=== PATIENT | female | born 1955 | race Two or more races ===

== ENCOUNTER 2020-04-01 11:05 | Outpatient (REF) | payer MEDICARE, SELFPAY ==
--- NOTE | 2020-04-01 | MM_ITS ---
EXAMINATION: MM SCREENING DIGITAL BREAST TOMOSYNTHESIS, BILATERAL CLINICAL INFORMATION: Screening. Asymptomatic. Family history breast cancer, cousin. The lifetime risk of breast cancer based on the Tyrer-Cuzick Model is 9%. COMPARISON: Mammography: 05/29/2019, 11/27/2018, 05/22/2018, 11/21/2017, 11/09/2017 TECHNIQUE: Digital breast tomosynthesis is performed in both the craniocaudal and mediolateral oblique views along with computer-aided detection (CAD). Synthesized 2D images are generated from the tomosynthesis. FINDINGS: The breasts are heterogeneously dense, which may obscure small masses (ACR BI-RADS breast composition Category c). There are no significant masses, abnormal calcifications, or other abnormalities. There is no architectural abnormality. No developing density. There are scattered bilateral vascular and some benign coarse calcifications again seen. No significant changes. IMPRESSION: No mammographic evidence of malignancy. ASSESSMENT: BI-RADS 2: Benign RECOMMENDATION: Routine annual mammography screening. This patient's information was entered into a reminder system with a target due date for their next mammogram.
== END 2020-04-01 11:06 | disposition home or self-care (01) ==
LOC: HO.MAMMO 11:05
PROVIDERS: PCP Internal Medicine; Visit Provider Physician Assistant
DX: Z12.31 Encounter for screening mammogram for malignant neoplasm of breast (principal)
CPT/HCPCS: 77063; 77067

== ENCOUNTER 2020-04-08 10:18 | Outpatient (REF) | payer MEDICARE, SELFPAY ==
[2020-04-08 11:45] LABS: MANUAL DIFF FLAG NO
[2020-04-08 11:53] LABS: Basophils Percent Auto 0.4 % (0-2); Eosinophils Absolute Auto 0.1 X10*3/uL (0.0-0.4); Eosinophils Percent Auto 0.7 % (0-4); Hemoglobin 12.1 g/dl (12.0-16.0); Imm Gran Abs Auto 0.02 X10*3/uL (0.00-0.03); Imm Gran Pct Auto 0.2 % (0.0-0.4); Lymphocytes Absolute Auto 1.3 X10*3/uL (1.2-4.9); Lymphocytes Percent Auto 16.3 % (20-40); Mean Corpuscular HGB Conc 32.7 g/dl (31.0-35.0); Mean Corpuscular Hemoglobin 30.4 pg (27.0-33.0); Monocytes Absolute Auto 0.9 X10*3/uL (0.1-1.2); Monocytes Percent Auto 10.7 % (2-11); Neutrophils Absolute Auto 5.8 X10*3/uL (2.0-8.3); Neutrophils Percent Auto 71.7 % (45-73); Platelet Count 358 X10*3/uL (160-400); Red Blood Count 3.98 X10*6/uL (4.20-5.50); Red Cell Distribution Width 11.9 % (11.0-16.0); White Blood Count 8.1 X10*3/uL (4.8-10.8)
[2020-04-08 12:22] LABS: Alanine Aminotransferase 15 U/L (0-31); Albumin Level 4.2 g/dL (3.5-5.0); Alkaline Phosphatase 51 U/L (39-117); Anion Gap 14 (12-20); Aspartate Amino Transferase 21 U/L (5-31); Bilirubin Total 0.7 mg/dL (0.0-1.0); Blood Urea Nitrogen 12 mg/dL (9-16); Calcium 9.6 mg/dL (8.4-10.2); Carbon Dioxide 33 mmol/L (22-29); Chloride 97 mmol/L (96-108); Cholesterol 223 mg/dL; Estimated Glomerular Filt Rate > 60; Glucose Fasting 100 mg/dL (60-99); HDL Cholesterol 77 mg/dL; LDL Cholesterol Calculated 119 mg/dl; Sodium 140 mmol/L (135-145); Total Protein 7.7 g/dL (6.5-8.0); Triglycerides 137 mg/dL
[2020-04-08 12:44] LABS: Vitamin D 25-OH Total 31.6 ng/mL (>30)
[2020-04-08 13:34] LABS: Folate 15.3 ng/mL (> or = 4.0); Vitamin B12 580 pg/mL (200-900)
== END 2020-04-08 10:19 | disposition home or self-care (01) ==
LOC: HO.LAB 10:18
PROVIDERS: PCP Internal Medicine; Visit Provider Internal Medicine
DX: E78.00 Pure hypercholesterolemia, unspecified (principal); I10 Essential (primary) hypertension; E53.8 Deficiency of other specified B group vitamins; E55.9 Vitamin D deficiency, unspecified
CPT/HCPCS: 36415; 80053; 80061; 82306; 82607; 82746; 85025

== ENCOUNTER 2020-07-21 09:51 | Outpatient (REF) | payer MEDICARE, SELFPAY ==
[2020-07-21 10:48] LABS: Alanine Aminotransferase 12 U/L (0-31); Albumin Level 4.3 g/dL (3.5-5.0); Alkaline Phosphatase 45 U/L (39-117); Anion Gap 14 (12-20); Aspartate Amino Transferase 21 U/L (5-31); Bilirubin Total 0.5 mg/dL (0.0-1.0); Blood Urea Nitrogen 15 mg/dL (9-16); Calcium 9.1 mg/dL (8.4-10.2); Carbon Dioxide 31 mmol/L (22-29); Chloride 98 mmol/L (96-108); Cholesterol 207 mg/dL; Estimated Glomerular Filt Rate > 60; Glucose Fasting 102 mg/dL (60-99); HDL Cholesterol 76 mg/dL; LDL Cholesterol Calculated 104 mg/dl; Potassium 3.5 mmol/L (3.3-5.1); Sodium 139 mmol/L (135-145); Total Protein 7.7 g/dL (6.5-8.0); Triglycerides 135 mg/dL
[2020-07-25 21:52] LABS: Vitamin D 25-OH, D2 <4 ng/mL; Vitamin D 25-OH, D3 33 ng/mL; Vitamin D 25-OH, Total 33 ng/mL (30-100)
== END 2020-07-21 09:52 | disposition home or self-care (01) ==
LOC: HO.LAB 09:51
PROVIDERS: PCP Internal Medicine; Visit Provider Internal Medicine
DX: E78.00 Pure hypercholesterolemia, unspecified (principal); E55.9 Vitamin D deficiency, unspecified
CPT/HCPCS: 36415; 80053; 80061; 82306

== ENCOUNTER 2020-11-18 13:18 | Emergency (ER) | payer MEDICARE, SELFPAY ==
--- NOTE | ~2020-11-18 | XR_ITS ---
EXAMINATION: RIGHT SHOULDER. LEFT HUMERUS. CLINICAL INFORMATION: Right shoulder pain. Left humeral pain. COMPARISON: None TECHNIQUE: 3 views right shoulder and 2 views left humerus. FINDINGS: Right shoulder: There is no visible acute fracture, dislocation or subluxation seen. There is mild reduction of glenohumeral and AC joint space. There is mild acromial inferior spurring. The soft tissues are normal. XR/XR shoulder RT min 2V IMPRESSION: Mild early degenerative changes right shoulder joint. No visible acute fracture, dislocation or subluxation seen.
--- NOTE | ~2020-11-18 | XR_ITS ---
EXAMINATION: RIGHT SHOULDER. LEFT HUMERUS. CLINICAL INFORMATION: Right shoulder pain. Left humeral pain. COMPARISON: None TECHNIQUE: 3 views right shoulder and 2 views left humerus. FINDINGS: Right shoulder: There is no visible acute fracture, dislocation or subluxation seen. There is mild reduction of glenohumeral and AC joint space. There is mild acromial inferior spurring. The soft tissues are normal. XR/XR humerus LT IMPRESSION: Mild early degenerative changes right shoulder joint. No visible acute fracture, dislocation or subluxation seen.
[2020-11-18 14:02] VITALS: BP 151/81; PULSE 71; RESP 16; TEMP 36.9; O2SAT 100; BMI 19.1
--- NOTE | 2020-11-18 15:45 | ED.EXTPRO ---
HPI - Extremity Problem General Chief complaint: Extremity Injury, Upper Stated complaint: ARM PAIN AND TINGLING Time Seen by Provider: 11/18/20 14:41 History of Present Illness HPI Narrative: Patient complains of pain without injury in both right shoulder and left bicep area, no fever no numbness no weakness no tingling no skin Related Data Home Medications Medication Instructions Recorded Confirmed atorvastatin 10 mg tablet 20 mg PO DAILY tab 04/13/20 08/18/20 melatonin 5 mg tablet 5 mg PO BEDTIME PRN 04/13/20 08/18/20 Previous Rx's Medication Instructions Recorded cholecalciferol (vitamin D3) 10 10 mcg PO DAILY 90 Days #90 cap 03/30/20 mcg (400 unit) capsule omeprazole 10 mg capsule,delayed 10 mg PO DAILY 90 Days #90 cap 05/18/20 release triamterene 37.5 1 tab PO QAM #90 tab 06/09/20 mg-hydrochlorothiazide 25 mg tablet fluticasone propionate 50 1 spray INTRANASAL DAILY 30 Days 08/18/20 mcg/actuation nasal #16 g spray,suspension trazodone 50 mg tablet 50 mg PO BEDTIME PRN 30 Days #30 08/27/20 tab acetaminophen 1,000 mg PO QID PRN #30 tab 11/18/20 lidocaine 5 % topical ointment 1 appl TOPICAL BEDTIME PRN 30 Days 11/18/20 #30 g naproxen [Naprosyn] 500 mg PO BID PRN #20 tab 11/18/20 Allergies Allergy/AdvReac Type Severity Reaction Status Date / Time pravastatin [PRAVASTATIN] Allergy Intermediate UPSET Verified 11/18/20 14:07 STOMACH simvastatin [SIMVASTATIN] Allergy Intermediate UPSET Verified 11/18/20 14:07 STOMACH ciprofloxacin Allergy Unknown Unknown Verified 11/18/20 14:07 lovastatin Allergy Unknown upset Verified 11/18/20 14:07 stomach Review of Systems Review of Systems: Positive for right shoulder pain and left upper arm pain Negatives are no fever no chills no dizziness no weakness no fainting no headache no neck pain no radiating pain no numbness weakness or tingling no skin rash no back pain Yes all other systems are reviewed and are negative PMFSH Past Medical History Source: nursing notes reviewed Medical History (Updated 12/07/20 @ 11:27 by Sharon K Dana, PA-C) Allergic rhinitis Essential hypertension GERD (gastroesophageal reflux disease) Pure hypercholesterolemia Unintentional weight loss Surgical History H/O breast biopsy History of cholecystectomy History of colonoscopy History of endoscopy History of tubal ligation Family History Family History Father No problems noted. Mother Hypertension Arthritis Kidney disease Recent heart attack Sister Diabetes Family/Other Diabetes Sister Diabetes Daughter No problems noted. Son No problems noted. Physical Exam Vital Signs: Vital Signs: Last Vital Signs Temp 98.5 F 11/18/20 14:02 Pulse 71 11/18/20 14:02 Resp 16 11/18/20 14:02 BP 151/81 H 11/18/20 14:02 Pulse Ox 100 11/18/20 14:02 Body Mass Index 19.1 General appearance no acute distress Head is normocephalic atraumatic Neck is supple and nontender Respiratory no distress Extremities the right shoulder had some anterior and lateral tenderness, range of motion was mildly reduced due to pain The left upper arm is normal in appearance there is some tenderness is no redness no warmth it is neurovascular intact distal as is the right shoulder The other extremities normal Skin no rash Neuro no gross motor sensory deficit Course Course Course Narrative: X-rays of right shoulder and left upper arm are normal No evidence of any infection and patient is discharged to follow with orthopedist Discharge Plan Discharge Clinical Impression: Biceps tendinitis of left upper extremity, Arthralgia of shoulder region, right Patient Disposition: Home, Self-Care Additional Instructions: X-ray showed some arthritis and right shoulder and were normal in left upper arm Follow with orthopedist Return any time if worse Prescriptions: New naproxen [Naprosyn] 500 mg tablet 500 mg PO BID PRN (Reason: pain) Qty: 20 RF: 0 acetaminophen 500 mg tablet 1,000 mg PO QID PRN (Reason: pain) Qty: 30 RF: 0 No Action cholecalciferol (vitamin D3) 10 mcg (400 unit) capsule 10 mcg PO DAILY 90 Days Qty: 90 RF: 2 omeprazole 10 mg capsule,delayed release(DR/EC) 10 mg PO DAILY 90 Days Qty: 90 RF: 3 triamterene-hydrochlorothiazid 37.5-25 mg tablet 1 tab PO QAM Qty: 90 RF: 3 trazodone 50 mg tablet 50 mg PO BEDTIME PRN (Reason: insomnia) 30 Days Qty: 30 RF: 6 lidocaine 5 % ointment 1 appl topical BEDTIME PRN (Reason: pain) 30 Days Qty: 30 RF: 1 melatonin 5 mg tablet 5 mg PO BEDTIME PRNRF: 0 atorvastatin 10 mg tablet 20 mg PO DAILY RF: 0 fluticasone propionate 50 mcg/actuation spray,suspension 1 spray intranasal DAILY 30 Days Qty: 16 RF: 6 Referrals: Liss Jimenez MD [Physician] - 2 days (Shoulder arthritis and biceps tendinitis) Interventions: ED Discharge Assessment Last Done: 11/18/20 16:00 Discharge Date/Time: 11/18/20 15:50
== END 2020-11-18 15:50 | disposition home or self-care (01) ==
PROVIDERS: Emergency Provider Emergency Medicine; PCP Internal Medicine
DX: M75.22 Bicipital tendinitis, left shoulder (principal); M19.011 Primary osteoarthritis, right shoulder; M25.511 Pain in right shoulder; E78.00 Pure hypercholesterolemia, unspecified; I10 Essential (primary) hypertension; Z79.02 Long term (current) use of antithrombotics/antiplatelets; Z79.899 Other long term (current) drug therapy
CPT/HCPCS: 73030; 73060; 99283

== ENCOUNTER → 2020-12-07 10:38 | Outpatient (BNVA) | payer MEDICARE, SELFPAY | PROVIDERS: PCP Internal Medicine; Visit Provider Physician Assistant | DX: M75.41 Impingement syndrome of right shoulder (principal) | CPT/HCPCS: 99202 ==

== ENCOUNTER 2020-12-29 08:10 | Outpatient (REF) | payer MEDICARE, SELFPAY ==
--- NOTE | ~2020-12-29 | XR_ITS ---
EXAMINATION: XR ELBOW, LEFT CLINICAL INFORMATION: Left elbow pain. COMPARISON: None TECHNIQUE: AP, lateral, and oblique views of the left elbow. FINDINGS: No acute fracture or dislocation. No joint space narrowing or marginal osteophytes. No osseous erosion. No abnormal soft tissue calcification. No significant joint effusion. XR/XR elbow LT min 3V IMPRESSION: No acute osseous abnormality.
== END 2020-12-29 08:11 | disposition home or self-care (01) ==
LOC: HO.HOSX 08:10
PROVIDERS: Visit Provider Physician Assistant
DX: M25.522 Pain in left elbow (principal)
CPT/HCPCS: 73080; 99212

== ENCOUNTER 2021-02-03 10:47 | Outpatient (REF) | payer MEDICARE, SELFPAY ==
[2021-02-03 13:17] LABS: Alanine Aminotransferase 20 U/L (0-31); Albumin Level 4.3 g/dL (3.5-5.0); Alkaline Phosphatase 45 U/L (39-117); Anion Gap 15 (12-20); Aspartate Amino Transferase 22 U/L (5-31); Bilirubin Total 0.6 mg/dL (0.0-1.0); Blood Urea Nitrogen 10 mg/dL (9-16); Calcium 9.5 mg/dL (8.4-10.2); Carbon Dioxide 30 mmol/L (22-29); Chloride 98 mmol/L (96-108); Cholesterol 220 mg/dL; Estimated Glomerular Filt Rate > 60; Glucose Fasting 94 mg/dL (60-99); HDL Cholesterol 81 mg/dL; LDL Cholesterol Calculated 120 mg/dl; Potassium 3.7 mmol/L (3.3-5.1); Sodium 139 mmol/L (135-145); Total Protein 7.7 g/dL (6.5-8.0); Triglycerides 98 mg/dL
[2021-02-08 13:25] LABS: Vitamin D 25-OH, D2 <4 ng/mL; Vitamin D 25-OH, D3 33 ng/mL; Vitamin D 25-OH, Total 33 ng/mL (30-100)
== END 2021-02-03 10:48 | disposition home or self-care (01) ==
LOC: HO.LAB 10:47
PROVIDERS: PCP Internal Medicine; Visit Provider Internal Medicine
DX: E55.9 Vitamin D deficiency, unspecified (principal); E78.00 Pure hypercholesterolemia, unspecified; E78.5 Hyperlipidemia, unspecified
CPT/HCPCS: 36415; 80053; 80061; 82306

== ENCOUNTER 2021-03-08 10:46 | Outpatient (REF) | payer MEDICARE, SELFPAY ==
[2021-03-08 12:45] LABS: Appearance Urine CLEAR; Color Urine YELLOW; Glucose Urine UA NEG (NEG); Leukocyte Esterase Urine 2+ (NEG); Nitrite Urine NEG (NEG); PH 7.5 (5.0-8.0); Specific Gravity - Urine 1.015 (1.005-1.025); UACC Culture Trigger YES; Urine Blood 2+ (NEG); Urine Ketones NEG (NEG); Urine Protein NEG (NEG-TRACE)
[2021-03-08 14:16] LABS: Bacteria Urine TRACE /LPF; Squamous Epithelial Cell Urine TRACE /LPF
== END 2021-03-08 10:47 | disposition home or self-care (01) ==
LOC: HO.LAB 10:46
PROVIDERS: PCP Internal Medicine; Visit Provider Internal Medicine
DX: R31.9 Hematuria, unspecified (principal)
CPT/HCPCS: 81001; 81003; 87086

== ENCOUNTER 2021-04-05 09:30 | Outpatient (REF) | payer MEDICARE, SELFPAY ==
--- NOTE | ~2021-04-05 | MM_ITS ---
EXAMINATION: MM SCREENING DIGITAL BREAST TOMOSYNTHESIS, BILATERAL CLINICAL INFORMATION: Screening. Asymptomatic. The lifetime risk of breast cancer based on the Tyrer-Cuzick Model is 3%. COMPARISON: Mammography: 04/01/2020, 05/29/2019, 11/27/2018, 05/22/2018, 11/21/2017, 11/09/2017, 01/29/2016 TECHNIQUE: Digital breast tomosynthesis is performed in both the craniocaudal and mediolateral oblique views along with computer-aided detection (CAD). Synthesized 2D images are generated from the tomosynthesis. FINDINGS: The breasts are heterogeneously dense, which may obscure small masses (ACR BI-RADS breast composition Category c). There is no significant mass or architectural abnormality. No abnormal calcifications. Again, there are bilateral vascular calcifications and some grouped coarse calcific posterior outer right breast and upper left breast. There is no developing density. The axilla and skin contours are unremarkable. MM/MM tomosynthesis screening BI IMPRESSION: No mammographic evidence of malignancy. ASSESSMENT: BI-RADS 2: Benign RECOMMENDATION: Routine annual mammography screening. This patient's information was entered into a reminder system with a target due date for their next mammogram.
== END 2021-04-05 09:31 | disposition home or self-care (01) ==
LOC: HO.MAMMO 09:30
PROVIDERS: PCP Internal Medicine; Visit Provider Physician Assistant
DX: Z12.31 Encounter for screening mammogram for malignant neoplasm of breast (principal)
CPT/HCPCS: 77063; 77067

== ENCOUNTER 2021-05-19 09:53 | Outpatient (REF) | payer MEDICARE, SELFPAY ==
--- NOTE | 2021-05-19 09:55 | EMG_ITS ---
This is a 66-year-old woman with left hand pain, numbness, and tingling. PHYSICAL EXAMINATION: On examination, she is alert and oriented with normal intellectual functions. Cranial nerves II through XII are normal. No Tinel or Phalen sign. Rule out carpal tunnel syndrome. Nerve conduction EMG study: Normal electrodiagnostic study of the left upper extremity with no evidence of carpal tunnel syndrome or nerve entrapment. Normal EMG of the left C5-T1 innervated muscles. MD MONICA Lemons/ALEXANDRA / [id number]
== END 2021-05-19 09:54 | disposition home or self-care (01) ==
LOC: HO.NEURO 09:53
PROVIDERS: Visit Provider Physician Assistant
DX: M79.642 Pain in left hand (principal); R20.0 Anesthesia of skin; M25.529 Pain in unspecified elbow
CPT/HCPCS: 95885; 95910

== ENCOUNTER 2022-01-13 09:24 | Outpatient (REF) | payer MEDICARE, SELFPAY ==
[2022-01-13 10:28] LABS: Alanine Aminotransferase 29 U/L (0-31); Albumin Level 4.2 g/dL (3.5-5.0); Alkaline Phosphatase 45 U/L (39-117); Anion Gap 13 (12-20); Aspartate Amino Transferase 27 U/L (5-31); Bilirubin Total 0.4 mg/dL (0.0-1.0); Blood Urea Nitrogen 12 mg/dL (9-16); Calcium 9.2 mg/dL (8.4-10.2); Carbon Dioxide 30 mmol/L (22-29); Chloride 98 mmol/L (96-108); Cholesterol 200 mg/dL; Estimated Glomerular Filt Rate > 60; Glucose Fasting 92 mg/dL (60-99); HDL Cholesterol 76 mg/dL; LDL Cholesterol Calculated 98 mg/dl; Potassium 3.8 mmol/L (3.3-5.1); Sodium 137 mmol/L (135-145); Total Protein 7.5 g/dL (6.5-8.0); Triglycerides 130 mg/dL
[2022-01-13 13:15] LABS: Appearance Urine CLEAR; Color Urine YELLOW; Glucose Urine UA NEG (NEG); Nitrite Urine NEG (NEG); PH 7.5 (5.0-8.0); Urine Blood 1+ (NEG); Urine Ketones NEG (NEG); Urine Protein NEG (NEG-TRACE)
[2022-01-13 13:16] LABS: Leukocyte Esterase Urine TRACE (NEG); UACC Culture Trigger NO
[2022-01-13 13:36] LABS: WBC Urine 0 /HPF (0-4)
[2022-01-18 15:56] LABS: Vitamin D 25-OH, D2 <4 ng/mL; Vitamin D 25-OH, D3 32 ng/mL; Vitamin D 25-OH, Total 32 ng/mL (30-100)
== END 2022-01-13 09:25 | disposition home or self-care (01) ==
LOC: HO.LAB 09:24
PROVIDERS: PCP Internal Medicine; Visit Provider Internal Medicine
DX: E55.9 Vitamin D deficiency, unspecified (principal); E78.5 Hyperlipidemia, unspecified; I10 Essential (primary) hypertension
CPT/HCPCS: 36415; 80053; 80061; 81001; 81003; 82306

== ENCOUNTER 2022-04-21 09:38 | Outpatient (REF) | payer MEDICARE, SELFPAY ==
--- NOTE | ~2022-04-21 | MM_ITS ---
EXAMINATION: MM SCREENING DIGITAL BREAST TOMOSYNTHESIS, BILATERAL CLINICAL INFORMATION: Screening. Asymptomatic. COMPARISON: Mammography: 04/05/2021, 04/01/2020, 05/29/2019 TECHNIQUE: Digital breast tomosynthesis is performed in both the craniocaudal and mediolateral oblique views along with computer-aided detection (CAD). Synthesized 2D images are generated from the tomosynthesis. FINDINGS: The breasts are heterogeneously dense, which may obscure small masses (ACR BI-RADS breast composition Category c). Breast tissue composition borders on average fibroglandular. There are no significant masses, abnormal calcifications, or other abnormalities. Parenchymal pattern is similar to prior studies. The axilla and skin contours are unremarkable. MM/MM tomosynthesis screening BI IMPRESSION: No mammographic evidence of malignancy. ASSESSMENT: BI-RADS 1: Negative RECOMMENDATION: Routine annual mammography screening. This patient's information was entered into a reminder system with a target due date for their next mammogram.
== END 2022-04-21 09:39 | disposition home or self-care (01) ==
LOC: HO.MAMMO 09:38
PROVIDERS: PCP Internal Medicine; Visit Provider Physician Assistant
DX: Z12.31 Encounter for screening mammogram for malignant neoplasm of breast (principal)
CPT/HCPCS: 77063; 77067

== ENCOUNTER 2022-05-26 09:07 | Outpatient (REF) | payer MEDICARE, SELFPAY ==
[2022-05-26 12:10] LABS: Alanine Aminotransferase 39 U/L (0-31); Albumin Level 4.4 g/dL (3.5-5.0); Alkaline Phosphatase 45 U/L (39-117); Anion Gap 13 (12-20); Aspartate Amino Transferase 34 U/L (5-31); Bilirubin Total 0.5 mg/dL (0.0-1.0); Blood Urea Nitrogen 16 mg/dL (9-16); Calcium 9.4 mg/dL (8.4-10.2); Carbon Dioxide 32 mmol/L (22-29); Chloride 99 mmol/L (96-108); Cholesterol 219 mg/dL; Estimated Glomerular Filt Rate > 60; Glucose Fasting 94 mg/dL (60-99); HDL Cholesterol 77 mg/dL; LDL Cholesterol Calculated 120 mg/dl; Potassium 3.8 mmol/L (3.3-5.1); Sodium 140 mmol/L (135-145); Total Protein 7.5 g/dL (6.5-8.0); Triglycerides 110 mg/dL; Vitamin D 25-OH Total 35.1 ng/mL (>30)
== END 2022-05-26 09:08 | disposition home or self-care (01) ==
LOC: HO.LAB 09:07
PROVIDERS: PCP Internal Medicine; Visit Provider Internal Medicine
DX: Z00.00 Encounter for general adult medical examination without abnormal findings (principal); E55.9 Vitamin D deficiency, unspecified; E78.5 Hyperlipidemia, unspecified
CPT/HCPCS: 36415; 80053; 80061; 82306

== ENCOUNTER 2023-01-26 09:53 | Outpatient (AMB) | payer MEDICARE, SELFPAY ==
--- NOTE | 2023-01-26 09:59 | A.OFFPC_ITS ---
Vital Signs 01/26/23 10:02 Height 4 ft 11.25 in Weight 102 lb 4 oz BMI 20.5 BP 124/72 Blood Pressure Location Lt brachial Position Sitting Pulse 65 Pulse Source Pulse Oximeter Pulse Oximetry (%) 98 Oxygen Delivery Method Room Air Intake Visit Reasons: PE, Bill ACP Intake Note: Patient is here today for a physical. Stop Attacher Required: No Accompanied by: Self / Same As Patient Allergies ciprofloxacin Allergy (Unknown, Verified 01/26/23 10:13) Unknown lovastatin Adverse Reaction (Intermediate, Verified 01/26/23 10:13) upset stomach pravastatin [PRAVASTATIN] Adverse Reaction (Intermediate, Verified 01/26/23 10:13) UPSET STOMACH simvastatin [SIMVASTATIN] Adverse Reaction (Intermediate, Verified 01/26/23 10:13) UPSET STOMACH Medication List - Last Reconciled 01/26/23 by Yari Cuello MD atorvastatin 10 mg PO DAILY 90 days cholecalciferol (vitamin D3) 10 mcg PO DAILY 90 days fluticasone propionate 50 mcg/actuation (Allergy Relief (fluticasone)) 1 spray intranasal DAILY 30 days lidocaine 5% 1 appl topical BEDTIME PRN 30 days melatonin 5 mg PO BEDTIME PRN omeprazole 10 mg PO DAILY 90 days triamterene-hydrochlorothiazid 37.5-25 mg 1 tab PO QAM Tobacco use date assessed: 01/26/23 Fall risk assessment: No Falls in past year Last assessed Fall Risk: 01/26/23 Dental Screening Dental Screen Date: 01/26/23 Did you have a dental visit in the last 12 months?: Yes Did you have a dental problem in the last 6 months where you did not have access to dental care?: No Was dental information given to patient?: Patient has dentist HPI HPI Comments History of Present Illness Details This is a 67-year-old female that comes for her physical exam. She has history of mild major depression that is in remission. Also had ankle-brachial index done recently which showed mild peripheral arterial disease in the right. She complains of some very mild pain in leg after walking a very long distance. Ultrasound will be done. Last mammogram was April 2022 and was normal. Last colonoscopy was 2018 and next colonoscopy should be 2023. No need for Pap smear due to age. No chest pain or shortness of breath. [facility] Medical History (Updated 01/26/23 @ 10:34 by Yari Cuello MD) Allergic rhinitis Essential hypertension GERD (gastroesophageal reflux disease) Mild major depression, single episode Pure hypercholesterolemia Unintentional weight loss Surgical History (Updated 01/26/23 @ 10:18 by Yari Cuello MD) H/O breast biopsy History of colonoscopy History of endoscopy History of tubal ligation Family History Father No problems noted. Mother Hypertension Arthritis Kidney disease Recent heart attack Sister Diabetes Family/Other Diabetes Sister Diabetes Daughter No problems noted. Son No problems noted. 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 1. Little interest or pleasure in doing things: not at all 2. Feeling down, depressed, or hopeless: not at all 3. Trouble falling or staying asleep, or sleeping too much: not at all 4. Feeling tired or having little energy: not at all 5. Poor appetite or overeating: not at all 6. Feeling bad about yourself - or that you are a failure or have let yourself or your family down: not at all 7. Trouble concentrating on things, such as reading the newspaper or watching television: not at all 8. Moving or speaking so slowly that other people could have noticed. Or the opp osite - being so fidgety or restless that you have been moving around a lot more than usual: not at all 9. Thoughts that you would be better off or of hurting yourself in some way: not at all Total score: 0 Depression Screening Interpretation: Negative 18238 - PHQ-9 Billing: Yes Source: Developed by Drs. Ken Baum, Katja Martinez, Jesus Landeros and colleagues, with an educational doug from [employer]. Thrive Questionnaire Date Thrive assessed: 01/26/23 I am a: Patient What is your living situation today?: I have a steady place to live Within the past 12 months, did the food you bought not last and you didn't have the money to get more?: Never true Within the past 12 months, did you worry whether your food would run out before you got money to buy more?: Never true Do you have trouble paying for medicines?: No Do you have trouble getting transportation to medical appointments?: No Do you have trouble paying your heating and electricity bill?: No Do you have trouble taking care of your child, family member or friend?: No Do you have trouble with day-to-day activities such as bathing, preparing meals, shopping, managing finances, etc.?: No Are you currently unemployed and looking for a job?: No Are you interested in more education?: No Please select the resources that you would like help with: None Currently or been in a relationship where the following occur: no concerns reported AUDIT C Alcohol Use Questionnaire (AUDIT-C) 1. How often do you have a drink containing alcohol?: Never 3. How often do you have six or more drinks on one occasion?: Never Total Score: 0 KANDICE-7 AMB Questionnaire KANDICE-7 Date KANDICE - 7 assessed: 01/26/23 Feeling nervous, anxious, or on edge: 0 = Not at all Not being able to stop or control worryin = Not at all Worrying too much about different things: 0 = Not at all Trouble relaxin = Not at all Being so restless that it is hard to sit still: 0 = Not at all Becoming easily annoyed or irritable: 0 = Not at all Feeling afraid as if something awful might happen: 0 = Not at all Total KANDICE-7 score (0-4 normal; 5-9 mild; 10-14 moderate; 15-21 severe): 0 Source: Developed by Drs. Ken Baum, Katja Martinez, Jesus Landeros and colleagues, with an educational doug from [employer]. KANDICE-7 Assessment Billing KANDICE-7 Assessment Tool: KANDICE-7 Assessment 00371 Review of Systems Const All systems reviewed & are unremarkable except as noted in HPI and below Eyes Reports no additional complaints, Denies change in vision and Denies other visual disturbances Card Denies chest pain at rest, Denies chest pain with activity, Denies edema, Denies irregular heart rhythm, Denies claudication, Denies dyspnea, Denies dyspnea on exertion, Denies orthopnea, Denies paroxysmal nocturnal dyspnea and Denies slow heart rate Resp Denies cough, Denies dyspnea and Denies dyspnea on exertion GI Denies abdominal pain, Denies change in bowel habits, Denies excessive flatus, Denies nausea and Denies vomiting Denies urinary incontinence, Denies urinary hesitancy and Denies urinary urgency Musc Denies abnormal gait, Denies atrophy, Denies deformity and Denies limited range of motion Skin/Breast Denies bleeding lesions, Denies changing lesions and Denies rash Neuro Denies abnormal gait, Denies behavioral changes, Denies confusion and Denies lack of coordination Psych Denies behavioral changes and Denies confusion Physical exam (Primary Care) Vital Signs: Last Vital Signs Pulse 65 01/26/23 10:02 BP 124/72 01/26/23 10:02 Pulse Ox 98 01/26/23 10:02 Oxygen Delivery Method Room Air 01/26/23 10:02 BMI result Body Mass Index 20.5 Tobacco/Smoking Status: Tobacco use Status Tobacco use date assessed 01/26/23 01/26/23 10:06 Patient Tobacco Use Status Never used Tobacco 01/26/23 09:59 e-Cigarette/Vaping Use Never Used 01/26/23 09:59 PHQ-9: PHQ-9 Score PHQ-9: Total score 0 01/26/23 10:06 Depression Screening Interpretation: Negative Thrive Assessment: Date of Thrive Assessment Date Thrive assessed 01/26/23 01/26/23 10:06 Currently or been in a relationship where the following occur: no concerns reported Const General: No confusion Orientation/consciousness: patient oriented x3 and No confusion HENMT Head: Yes normal to inspection, Yes normocephalic and Yes atraumatic Ears: external ears normal Eyes General: appearance normal, both eyes and all related structures Eyelids: Yes eyelids normal Conjunctivae: conjunctivae normal Neck Neck: Yes normal visual inspection and Yes supple Resp Effort & Inspection: normal respiratory effort Auscultation: clear to auscultation bilaterally Cardio Jugular venous distension: no JVD Rate: regular rate Rhythm: regular rhythm Heart sounds: S1 normal heart sound present and S2 normal heart sound present GI Inspection: Yes normal to inspection Palpation (GI): Soft to palpation and nontender Auscultation: normal bowel sounds Skin General skin exam: no rashes or lesions noted Neuro General: patient oriented x3, no focal motor deficits and No confusion Extrem General: Yes full ROM Psych Appearance: grossly normal Assessment and Plan Assessment & Plan (1) Physical exam: Code(s): Z00.00 - Encounter for general adult medical examination without abnormal findings Plan: Repeat in a year (2) Peripheral arterial disease: Comment: CANDIDO right 0.86 CANDIDO left 0.94 Code(s): I73.9 - Peripheral vascular disease, unspecified Plan: Ultrasound ordered (3) Mild major depression, single episode: Code(s): F32.0 - Major depressive disorder, single episode, mild Plan: In remission Orders: Orders US arterial duplex LE BI Today I73.9 - Peripheral vascular disease, unspecified Coding Level of Care Code Est Pt Prev Care >65y(38951) Diagnoses Physical exam Z00.00 Peripheral arterial disease I73.9 Mild major depression, single episode F32.0 Additional Codes KANDICE-7 Assessment Billing - KANDICE-7 Assessment Tool: KANDICE-7 Assessment [id number] ([id number]) Time Spent (min) 32
[2023-01-26 10:02] VITALS: BP 124/72; PULSE 65; O2SAT 98; BMI 20.5
== END 2023-01-26 10:29 | disposition home or self-care (01) ==
LOC: HO.HMGH 09:53
PROVIDERS: PCP Internal Medicine; Visit Provider Internal Medicine
DX: Z00.00 Encounter for general adult medical examination without abnormal findings (principal); I73.9 Peripheral vascular disease, unspecified; F32.0 Major depressive disorder, single episode, mild
CPT/HCPCS: 99397

== ENCOUNTER 2023-02-02 14:19 | Outpatient (REF) | payer MEDICARE, SELFPAY ==
--- NOTE | ~2023-02-02 | US_ITS ---
CLINICAL INDICATION: Peripheral vascular disease. FINDINGS: Real-time duplex on the examination of the lower extremity arterial systems was performed bilaterally from the levels of the external iliac arteries to the ankles. Right lower extremity peak systolic velocities (cm/s): Common femoral artery: 83 Profunda femoral artery: 65 Proximal superficial femoral artery: 97 Mid superficial femoral artery: 92 Distal superficial femoral artery: 61 Proximal popliteal artery: 57 Distal popliteal artery: 72 Mid anterior tibial artery: 56 Peroneal artery: 52 Posterior tibial artery: 52 Dorsalis pedis artery: 49 Grayscale and color Doppler imaging of the right lower extremity demonstrates triphasic waveforms throughout. Left lower extremity peak systolic velocities (cm/s): Common femoral artery: 88 Profunda femoral artery: 74 Proximal superficial femoral artery: 96 Mid superficial femoral artery: 96 Distal superficial femoral artery: 65 Proximal popliteal artery: 52 Distal popliteal artery: 70 Mid anterior tibial artery: 56 Peroneal artery: 46 Posterior tibial artery: 48 Dorsalis pedis artery: 61 Grayscale and color Doppler imaging of the left lower extremity demonstrates triphasic waveforms throughout. US/US arterial duplex LE BI IMPRESSION: No evidence of hemodynamically significant stenosis.
== END 2023-02-02 14:20 | disposition home or self-care (01) ==
LOC: HO.US 14:19
PROVIDERS: Visit Provider Internal Medicine
DX: I73.9 Peripheral vascular disease, unspecified (principal)
CPT/HCPCS: 93925

== ENCOUNTER 2023-04-27 09:05 | Outpatient (REF) | payer OTHER, SELFPAY | END 2023-04-27 09:06 | disposition home or self-care (01) | LOC: HO.MAMMO 09:05 | PROVIDERS: PCP Internal Medicine; Visit Provider Internal Medicine | DX: Z12.31 Encounter for screening mammogram for malignant neoplasm of breast (principal) | CPT/HCPCS: 77063; 77067 ==

== ENCOUNTER → 2023-04-27 09:45 | Outpatient (BNV) | payer OTHER, SELFPAY | PROVIDERS: PCP Internal Medicine; Visit Provider Radiology Diagnostic Radiology | DX: Z12.31 Encounter for screening mammogram for malignant neoplasm of breast (principal) | CPT/HCPCS: 77063; 77067 ==

== ENCOUNTER 2023-07-31 09:21 | Outpatient (AMB) | payer OTHER, SELFPAY ==
[2023-07-31 09:25] VITALS: BP 132/78; BMI 21.0
--- NOTE | 2023-07-31 09:25 | A.OFFPC_ITS ---
Vital Signs 07/31/23 09:25 Height 4 ft 11.25 in Weight 105 lb BMI 21.0 BP 132/78 Blood Pressure Location Lt brachial Position Sitting Intake Visit Reasons: bp Intake Note: Patient here for a follow up BP Wire Temperer Required: No Accompanied by: Self / Same As Patient Allergies ciprofloxacin Allergy (Unknown, Verified 07/31/23 09:36) Unknown lovastatin Adverse Reaction (Intermediate, Verified 07/31/23 09:36) upset stomach pravastatin [PRAVASTATIN] Adverse Reaction (Intermediate, Verified 07/31/23 09:36) UPSET STOMACH simvastatin [SIMVASTATIN] Adverse Reaction (Intermediate, Verified 07/31/23 09:36) UPSET STOMACH Medication List - Last Reconciled 07/31/23 by Yari Cuello MD atorvastatin 10 mg PO DAILY 90 days cholecalciferol (vitamin D3) 10 mcg PO DAILY 90 days fluticasone propionate 50 mcg/actuation (Allergy Relief (fluticasone)) 1 spray intranasal DAILY 30 days omeprazole 10 mg PO DAILY 90 days triamterene-hydrochlorothiazid 37.5-25 mg 1 tab PO QAM Tobacco use date assessed: 07/31/23 Fall risk assessment: No Falls in past year Last assessed Fall Risk: 07/31/23 Dental Screening Dental Screen Date: 07/31/23 Did you have a dental visit in the last 12 months?: Yes Did you have a dental problem in the last 6 months where you did not have access to dental care?: No Was dental information given to patient?: Patient has dentist HPI HPI Comments History of Present Illness Details This is a 68-year-old female with mild major depression, hypertension, pure hypercholesterolemia and GERD that comes today for follow-up on her conditions. Depression has been in remission without requiring medication or counseling. Blood pressure stable. On low-dose statin for her cholesterol and lipid panel will be order this year. GERD stable with low-dose PPIs as needed. No chest pain or shortness of breath. [facility] Medical History Mild major depression, single episode Unintentional weight loss Allergic rhinitis GERD (gastroesophageal reflux disease) Pure hypercholesterolemia Essential hypertension Surgical History History of endoscopy History of colonoscopy H/O breast biopsy History of tubal ligation Family History Father No problems noted. Mother Hypertension Arthritis Kidney disease Recent heart attack Sister Diabetes Family/Other Diabetes Sister Diabetes Daughter No problems noted. Son No problems noted. 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 1. Little interest or pleasure in doing things: several days 2. Feeling down, depressed, or hopeless: several days 3. Trouble falling or staying asleep, or sleeping too much: not at all 4. Feeling tired or having little energy: several days 5. Poor appetite or overeating: several days 6. Feeling bad about yourself - or that you are a failure or have let yourself or your family down: not at all 7. Trouble concentrating on things, such as reading the newspaper or watching television: not at all 8. Moving or speaking so slowly that other people could have noticed. Or the opposite - being so fidgety or restless that you have been moving around a lot more than usual: several days 9. Thoughts that you would be better off or of hurting yourself in some way: not at all Total score: 5 Depression Screening Interpretation: Positive Depression Screening Follow-up: Existing condition Depression Screening Done: Yes 48071 - PHQ-9 Billing: Yes Source: Developed by Drs. Ken Baum, Katja Martinez, Jesus Landeros and colleagues, with an educational doug from [employer]. Thrive Questionnaire Date Thrive assessed: 07/31/23 I am a: Patient What is your living situation today?: I have a steady place to live Within the past 12 months, did the food you bought not last and you didn't have the money to get more?: Never true Within the past 12 months, did you worry whether your food would run out before you got money to buy more?: Never true Do you have trouble paying for medicines?: No Do you have trouble getting transportation to medical appointments?: No Do you have trouble paying your heating and electricity bill?: No Do you have trouble taking care of your child, family member or friend?: No Do you have trouble with day-to-day activities such as bathing, preparing meals, shopping, managing finances, etc.?: No Are you currently unemployed and looking for a job?: No Are you interested in more education?: No Please select the resources that you would like help with: None Currently or been in a relationship where the following occur: no concerns reported THRIVE Score: 0 AUDIT C Alcohol Use Questionnaire (AUDIT-C) 1. How often do you have a drink containing alcohol?: Never Total Score: 0 Score Reviewed/Action Taken: No KANDICE-7 AMB Questionnaire KANDICE-7 Date KANDICE - 7 assessed: 07/31/23 Feeling nervous, anxious, or on edge: 1 = Several days Not being able to stop or control worryin = Not at all Worrying too much about different things: 0 = Not at all Trouble relaxin = Not at all Being so restless that it is hard to sit still: 0 = Not at all Becoming easily annoyed or irritable: 0 = Not at all Feeling afraid as if something awful might happen: 1 = Several days Total KANDICE-7 score (0-4 normal; 5-9 mild; 10-14 moderate; 15-21 severe): 2 Source: Developed by Drs. Ken Baum, Katja Martinez, Jesus Landeros and colleagues, with an educational doug from [employer]. KANDICE-7 Assessment Billing KANDICE-7 Assessment Tool: KANDICE-7 Assessment 16239 Review of Systems Const All systems reviewed & are unremarkable except as noted in HPI and below Eyes Reports no additional complaints, Denies change in vision and Denies other visual disturbances Card Denies chest pain at rest, Denies chest pain with activity, Denies edema, Denies irregular heart rhythm, Denies claudication, Denies dyspnea, Denies dyspnea on exertion, Denies orthopnea, Denies paroxysmal nocturnal dyspnea and Denies slow heart rate Resp Denies cough, Denies dyspnea and Denies dyspnea on exertion GI Denies abdominal pain, Denies change in bowel habits, Denies excessive flatus, Denies nausea and Denies vomiting Denies urinary incontinence, Denies urinary hesitancy and Denies urinary urgency Musc Denies abnormal gait, Denies atrophy, Denies deformity and Denies limited range of motion Skin/Breast Denies bleeding lesions, Denies changing lesions and Denies rash Neuro Denies abnormal gait, Denies behavioral changes and Denies lack of coordination Psych Denies behavioral changes Physical exam (Primary Care) Vital Signs: Last Vital Signs BP 132/78 07/31/23 09:25 BMI result Body Mass Index 21.0 Tobacco/Smoking Status: Tobacco use Status Tobacco use date assessed 07/31/23 07/31/23 09:32 Patient Tobacco Use Status Never used Tobacco 07/31/23 09:32 e-Cigarette/Vaping Use Never Used 07/31/23 09:32 PHQ-9: PHQ-9 Score PHQ-9: Total score 5 07/31/23 09:32 Depression Screening Interpretation: Positive Depression Screening Follow-up: Existing condition Thrive Assessment: Date of Thrive Assessment Date Thrive assessed 07/31/23 07/31/23 09:32 Currently or been in a relationship where the following occur: no concerns reported Eyes General: appearance normal, both eyes and all related structures Eyelids: Yes eyelids normal Conjunctivae: conjunctivae normal Neck Neck: Yes normal visual inspection and Yes supple Resp Effort & Inspection: normal respiratory effort Auscultation: clear to auscultation bilaterally Cardio Jugular venous distension: no JVD Rate: regular rate Rhythm: regular rhythm Heart sounds: S1 normal heart sound present and S2 normal heart sound present Extrem General: Yes full ROM Psych Appearance: grossly normal Assessment and Plan Assessment & Plan (1) Mild major depression, single episode: Code(s): F32.0 - Major depressive disorder, single episode, mild Plan: In remission. (2) GERD (gastroesophageal reflux disease): Code(s): K21.9 - Gastro-esophageal reflux disease without esophagitis Qualifiers: Esophagitis presence: esophagitis presence not specified Qualified Code(s): K21.9 - Gastro-esophageal reflux disease without esophagitis Plan: Continue PPIs. (3) Pure hypercholesterolemia: Code(s): E78.00 - Pure hypercholesterolemia, unspecified Plan: Continue statins. (4) Essential hypertension: Code(s): I10 - Essential (primary) hypertension Plan: Continue triamterene-hydrochlorothiazide. Blood pressure goal is equal or less than 130/80. Orders: Orders Vitamin D 25-OH Total 6 Months E55.9 - Vitamin D deficiency, unspecified Lipid Panel 6 Months E78.5 - Hyperlipidemia, unspecified Comprehensive [place]. Panel Fast 6 Months E78.00 - Pure hypercholesterolemia, unspecified Coding Level of Care Code Est Pt Level 4 (48602) Diagnoses Mild major depression, single episode F32.0 Gastroesophageal reflux disease, unspecified whether esophagitis present K21.9 Esophagitis presence: esophagitis presence not specified Pure hypercholesterolemia E78.00 Essential hypertension I10 Additional Codes KANDICE-7 Assessment Billing - KANDICE-7 Assessment Tool: KANDICE-7 Assessment 17381 ([id number]) Time Spent (min) 23
== END 2023-07-31 09:43 | disposition home or self-care (01) ==
PROVIDERS: PCP Internal Medicine; Visit Provider Internal Medicine
DX: K21.9 Gastro-esophageal reflux disease without esophagitis (principal); F32.0 Major depressive disorder, single episode, mild; E78.00 Pure hypercholesterolemia, unspecified; I10 Essential (primary) hypertension
CPT/HCPCS: 99214

== ENCOUNTER 2023-12-08 11:28 | Emergency (ER) | payer OTHER, SELFPAY ==
[2023-12-08 11:51] VITALS: BP 129/79; PULSE 87; RESP 18; TEMP 36.3; O2SAT 98; BMI 20.2
--- NOTE | 2023-12-08 11:52 | ED_ITS ---
HPI - General Adult General Chief complaint: Nausea/Vomiting/Diarrhea Stated complaint: N/V/D Time Seen by Provider: 12/08/23 13:01 Source: patient Limitations: no limitations History of Present Illness HPI narrative: This is a 68-year-old woman with a past medical history of depression, hypertension, hypercholesterolemia and GERD who presents for evaluation of nausea/vomiting/diarrhea. She states she ate a chicken dinner last night with family. She states a few hours later she began to experience nausea, vomiting and diarrhea. She states no hematemesis, melena or hematochezia. She states no fever. She state upper abdominal discomfort, but no pain. She states no else at home is sick with similar symptoms of nausea, vomiting and diarrhea. She states no chest pain or dyspnea. She states no back pain. She states no trauma or falls. She states no dysuria, urinary frequency/urgency or hematuria. She states no headache. She states no recent antibiotic use. She states she lives at home. She states no recent hospitalization. Related Data Previous Rx's ?Medication ?Instructions ?Recorded fluticasone propionate 50 1 spray intranasal DAILY 30 days 10/10/22 mcg/actuation nasal #16 grams spray,suspension (Allergy Relief (fluticasone)) omeprazole 10 mg capsule,delayed 10 mg PO DAILY 90 days #90 caps 05/18/23 release atorvastatin 10 mg tablet 10 mg PO DAILY 90 days #90 tabs 06/18/23 triamterene 37.5 1 tab PO QAM #90 tabs 08/24/23 mg-hydrochlorothiazide 25 mg tablet cholecalciferol (vitamin D3) 10 10 mcg PO DAILY 90 days #90 caps 12/07/23 mcg (400 unit) capsule magnesium chloride 71.5 mg 143 mg (2 x 71.5 mg) PO DAILY 5 12/08/23 (magnesium chloride) days #10 tabs tablet,delayed release (Slow-Mag) ondansetron 4 mg disintegrating 4 mg PO Q8H PRN nausea and 12/08/23 tablet vomiting #10 tabs Allergies Allergy/AdvReac Type Severity Reaction Status Date / Time ciprofloxacin Allergy Unknown Unknown Verified 12/08/23 11:51 lovastatin AdvReac Intermediate upset Verified 12/08/23 11:51 stomach pravastatin [PRAVASTATIN] AdvReac Intermediate UPSET Verified 12/08/23 11:51 STOMACH simvastatin [SIMVASTATIN] AdvReac Intermediate UPSET Verified 12/08/23 11:51 STOMACH Review of Systems 2 Review of Systems: ROS as per HPI COUNT INCLUDES THE [facility] Past Medical History Medical History Mild major depression, single episode Unintentional weight loss Allergic rhinitis GERD (gastroesophageal reflux disease) Pure hypercholesterolemia Essential hypertension Surgical History History of endoscopy History of colonoscopy H/O breast biopsy History of tubal ligation Family History Family History Father No problems noted. Mother Hypertension Arthritis Kidney disease Recent heart attack Sister Diabetes Family/Other Diabetes Sister Diabetes Daughter No problems noted. Son No problems noted. 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 Cognitive needs: No Hearing needs: No Vision needs: No Physical Exam ED Vital Signs: Vital Signs - 24 hr 12/08/23 11:51 12/08/23 12:00 12/08/23 14:00 Temperature 97.3 F 98.9 F 98.5 F Pulse Rate 87 69 65 Respiratory Rate 18 Blood Pressure 129/79 136/60 129/55 L Pulse Oximetry 98 99 100 Oxygen Delivery Method Room Air Room Air Room Air BMI result Body Mass Index 20.2 Gen: NAD, AOx3 HEENT: NCAT, EOMI, normal conjunctiva CV: RRR Pulm: CTAB, no increased work of breathing GI: Soft, NTND, no rebound, guarding or rigidity Neuro: Grossly non focal Course Course Course Narrative: RME performed by Radha Hwang PA-C. Patient is a 68 year old assigned female at presenting to the emergency department with nausea, diarrhea, and abdominal pain. Patient states she has been having diarrhea and nausea after eating possibly bad chicken last night. Patient states that her sister ate the chicken but she has no symptoms. Detailed physical exam and review of systems are deferred to the logging engineer. Labs and swabs ordered. Patient placed back in the waiting room pending room availability and results. Medications Administered Discontinued Medications Generic Name Dose Route Start Last Admin Trade Name Radha PRN Reason Stop Dose Admin Magnesium Sulfate 2 gm in 50 mls @ 25 mls/hr 12/08/23 13:01 12/08/23 14:27 Magnesium Sulfate/H2o IV 12/08/23 15:00 Infused ONCE ONE Infusion Sodium Chloride 1,000 mls @ 999 mls/hr 12/08/23 13:15 12/08/23 14:27 Ns IV 12/08/23 14:15 Infused .Q1H1M DEBBIE Infusion Famotidine 20 mg/ Sodium 52 mls @ 200 mls/hr 12/08/23 14:00 12/08/23 16:18 Chloride IV 12/08/23 14:15 Infused ONCE ONE Infusion Magnesium Sulfate 2 gm in 50 mls @ 25 mls/hr 12/08/23 14:12 12/08/23 16:18 Magnesium Sulfate/H2o IV 12/08/23 16:11 Infused ONCE ONE Infusion Ondansetron HCl 4 mg 12/08/23 13:57 12/08/23 14:42 Ondansetron Hcl 4 Mg/2 Ml Vial IVPUSH 12/08/23 13:58 4 mg ONCE ONE Administration Medical Decision Making Medical Decision Making MDM Narrative: Differential diagnosis includes, but is not limited to viral syndrome, gastroenteritis, gastritis, dehydration, electrolyte abnormality, acute kidney injury. Patient is afebrile and hemodynamically stable on room air. Exam is benign and reassuring. Labs are independently reviewed and interpreted by me. They are notable for hypomagnesemia of 1.3, which is repleted. Labs otherwise reassuring with no evidence of acute kidney injury secondary to dehydration in the setting of vomiting diarrhea. Further, there is no evidence of elevated anion gap to suggest starvation ketosis. There is mildly elevated AST which is noncontributory. This is not consistent or suggestive of acute viral hepatitis. Lipase is reassuring and clinical history is not suggestive of pancreatitis. Patient is negative for influenza, RSV COVID-19. Cell blood count is reassuring without significant leukocytosis or other cell I reviewed and interpreted EKG, which is unremarkable for any acute findings. Patient is provided IV fluids, magnesium repletion and famotidine. On re-examination, patient is well-appearing and in no acute distress. ?Patient states symptoms have resolved. She states feeling hungry and has tolerated po intake.?There is no indication for further emergent evaluation in this otherwise well-appearing patient as above. ?Patient is provided written and verbal instructions, educational materials, prescription for short course of oral magnesium repletion as well as Zofran ODT, recommendations for outpatient follow-up and repeat magnesium level, strict return precautions and teach back is performed. ?Patient states understanding and agreement with plan of care. ?Patient is discharged home in stable and improved condition. Admission/Observation Consideration of admission/observation: Escalation of care including admission/observation considered Lab Data MDM Lab Attestation statement: I reviewed the patient's lab results. 12/08/23 12:21 12/08/23 12:21 Labs: Lab Results 12/08/23 Range/Units 12:21 WBC 7.6 (4.8-10.8) X10*3/uL RBC 4.09 L (4.20-5.50) X10*6/uL Hgb 12.6 (12.0-16.0) g/dl Hct 36.6 L (37.0-47.0) % MCV 89.5 (80.0-98.0) fL MCH 30.8 (27.0-33.0) pg MCHC 34.4 (31.0-35.0) g/dl RDW 12.3 (11.0-16.0) % Plt Count 323 (160-400) X10*3/uL MPV 9.6 (9.4-12.3) fL Immature Gran % (Auto) Cancelled Neut % (Auto) Cancelled Lymph % (Auto) Cancelled [place] % (Auto) Cancelled Eos % (Auto) Cancelled Baso % (Auto) Cancelled Lymph # (Auto) Cancelled [place] # (Auto) Cancelled Eos # (Auto) Cancelled Baso # (Auto) Cancelled Abs Immat Gran (auto) Cancelled Absolute Neuts (auto) Cancelled Absolute Nucleated RBC 0.000 (0.0-0.012) X10*3/uL Nucleated RBC % (auto) 0.0 (0.0-0.2) /100WBC Neutrophils % (Manual) 78 H (45-73) % Band Neutrophils % 1 L (3-5) % Lymphocytes % (Manual) 11 L (20-40) % Atypical Lymphs % (Man) 1 (0-6) % Monocytes % (Manual) 9 (2-11) % Abs Neuts (Manual) 6.0 (2.0-8.3) X10*3/uL Lymphocytes # (Manual) 0.8 L (1.2-4.9) X10*3/uL Atyp Lymphs # (Manual) 0.1 x10*3/uL Monocytes # (Manual) 0.7 (0.1-1.2) X10*3/uL Platelet Estimate NORMAL (NORMAL) Plt Morphology Comment NORMAL RBC Morphology NOTED Ovalocytes 1+ (5-14) /OIF Sodium 139 (135-145) mmol/L Potassium 3.4 (3.3-5.1) mmol/L Chloride 102 (96-108) mmol/L Carbon Dioxide 28 (22-29) mmol/L Anion Gap 12 (12-20) BUN 10 (9-16) mg/dL Creatinine 0.78 (0.5-1.4) mg/dL Estim Creat Clear Calc 46.4 Estimated GFR > 60 Random Glucose 115 (60-115) mg/dL Calcium 9.5 (8.4-10.2) mg/dL Magnesium 1.3 L* (1.6-2.6) mg/dL Total Bilirubin 0.5 (0.0-1.0) mg/dL AST 37 H (5-31) U/L ALT 26 (0-31) U/L Alkaline Phosphatase 46 (39-117) U/L Total Protein 8.3 H (6.5-8.0) g/dL Albumin 4.6 (3.5-5.0) g/dL Lipase 24 (8-78) U/L Influenza Type A (PCR) NEGATIVE (Negative) Influenza Type B (PCR) NEGATIVE (Negative) RSV RNA Qual (PCR) NEGATIVE (Negative) SARS-CoV-2 RNA (RT-PCR) NEGATIVE (Negative) Independent Interpretation I performed an independent interpretation of an: EKG Interpretation: EKG shows normal sinus rhythm at 68 beats per minute, WV 162, QRS 74, QTC 438, no STEMI (no previous EKG for comparison) Discharge Plan Discharge Clinical Impression: Hypomagnesemia, Nausea & vomiting, Diarrhea Patient Disposition: Home, Self-Care Instructions: Acute Nausea and Vomiting (ED), Acute Diarrhea (ED), Hypomagnesemia (ED) Additional Instructions: You were seen and evaluated in the emergency room. Your vital signs were normal and he did not have fever. ? Your blood work showed low magnesium level, which can happen from vomiting, diarrhea and not eating. You were given fluids through an IV and magnesium repletion. You are given a prescription for nausea medicine. Please take as needed. You are given a presciption for magnesium. Please take every day starting tomorrow morning December 09, 2023. Please follow-up with your primary care doctor in the next 5-7 days. ?Please return to the emergency room if you develop any worsening symptoms including, but not limited to fever, abdominal pain, nausea/vomiting or inability to eat/drink. Fue atendido y evaluado en la sourav de emergencias. Milagros signos vitales na normales y no ten?a fiebre. ? Schwarz an?lisis de jose mostr? un nivel bajo de magnesio, lo que puede ocurrir debido a v?mitos, diarrea y no comer. Le administraron l?quidos por v?a intravenosa y reposici?n de magnesio. Le recetan un medicamento para las n?useas. T?preston seg?n sea necesario. Le josef mark receta de magnesio. T?preston todos los d?as a partir de ma?yari por la ma?yari 2023. Chuck un seguimiento con schwarz m?dico de atenci?n primaria en los pr?ximos 5 a 7 d?as. ?Llame hoy o el 2023 para programar schwarz rodolfo y solicitar que se revise nuevamente schwarz nivel de magnesio. Regrese a la sourav de emergencias si desarrolla alg?n s?ntoma que empeore, incluidos, entre otros, fiebre, dolor abdominal, n?useas/v?mitos o incapacidad para comer/beber. Prescriptions: New Slow-Mag 71.5 mg tablet,delayed release (DR/EC) 143 mg PO DAILY 5 Days Qty: 10 0RF ondansetron 4 mg tablet,disintegrating 4 mg PO Q8H PRN (Reason: nausea and vomiting) Qty: 10 0RF No Action fluticasone propionate [Allergy Relief (fluticasone)] 50 mcg/actuation spray,suspension 1 spray intranasal DAILY 30 Days Qty: 16 1RF Rx Instructions: administer into each nostril omeprazole 10 mg capsule,delayed release(DR/EC) 10 mg PO DAILY 90 Days Qty: 90 3RF atorvastatin 10 mg tablet 10 mg PO DAILY 90 Days Qty: 90 1RF triamterene-hydrochlorothiazid 37.5-25 mg tablet 1 tab PO QAM Qty: 90 3RF cholecalciferol (vitamin D3) 10 mcg (400 unit) capsule 10 mcg PO DAILY 90 Days Qty: 90 0RF Print Language: Yemeni
[2023-12-08 12:00] VITALS: BP 136/60; PULSE 69; TEMP 37.2; O2SAT 99
[2023-12-08 12:26] LABS: Hematocrit 36.6 % (37.0-47.0); Hemoglobin 12.6 g/dl (12.0-16.0); Mean Corpuscular HGB Conc 34.4 g/dl (31.0-35.0); Mean Corpuscular Hemoglobin 30.8 pg (27.0-33.0); Mean Corpuscular Volume 89.5 fL (80.0-98.0); Mean Platelet Volume 9.6 fL (9.4-12.3); Platelet Count 323 X10*3/uL (160-400); Red Blood Count 4.09 X10*6/uL (4.20-5.50); Red Cell Distribution Width 12.3 % (11.0-16.0)
[2023-12-08 12:27] LABS: WBC ABN SCTR FOR CBC 1
[2023-12-08 12:46] LABS: Alanine Aminotransferase 26 U/L (0-31); Albumin Level 4.6 g/dL (3.5-5.0); Alkaline Phosphatase 46 U/L (39-117); Anion Gap 12 (12-20); Aspartate Amino Transferase 37 U/L (5-31); Bilirubin Total 0.5 mg/dL (0.0-1.0); Blood Urea Nitrogen 10 mg/dL (9-16); Calcium 9.5 mg/dL (8.4-10.2); Carbon Dioxide 28 mmol/L (22-29); Chloride 102 mmol/L (96-108); Creatinine Clr Calc Pharmacy 46.4; Estimated Glomerular Filt Rate > 60; Glucose Random 115 mg/dL (60-115); Magnesium 1.3 mg/dL (1.6-2.6); Potassium 3.4 mmol/L (3.3-5.1); Sodium 139 mmol/L (135-145); Total Protein 8.3 g/dL (6.5-8.0)
[2023-12-08 12:48] LABS: Band Neutrophils Percent 1 % (3-5); Lymphocytes Percent Manual 11 % (20-40); Neutrophils Percent Manual 78 % (45-73)
[2023-12-08 12:54] LABS: Atypical Lymphs Percent Manual 1 % (0-6); Monocytes Percent Manual 9 % (2-11)
[2023-12-08 12:55] LABS: Ovalocytes 1+ (5-14) /OIF; RBC Morphology NOTED
[2023-12-08 12:57] LABS: Platelet Estimate NORMAL (NORMAL); Platelet Morphology Comment NORMAL
--- NOTE | 2023-12-08 13:02 | ECG_ITS ---
Test Reason : ELECTROLYTE ABNORMALITY Blood Pressure : / mmHG Vent. Rate : 068 BPM Atrial Rate : 068 BPM P-R Int : 162 ms QRS Dur : 074 ms QT Int : 412 ms P-R-T Axes : 062 074 058 degrees QTc Int : 438 ms Normal sinus rhythm Normal ECG When compared with ECG of 20-OCT-2019 15:28, No significant change was found Referred By: Iwona Bower Electronically Signed By:Riley Leggett
[2023-12-08 13:05] LABS: Influenza A PCR NEGATIVE (Negative); Influenza B PCR NEGATIVE (Negative); Resp Syncy Virus RNA Qual PCR NEGATIVE (Negative); SARS COV2 PCR INHOUSE NEGATIVE (Negative)
[2023-12-08] MEDS: Magnesium Sulfate/H2O 2 GM/50 ML PIGGYBACK IV ×2 (13:41→14:43)
[2023-12-08] MEDS: 0.9 % Sodium Chloride 1,000 ML 999 ML IV (13:42)
[2023-12-08 13:51] LABS: Lipase 24 U/L (8-78)
[2023-12-08 14:00] VITALS: BP 129/55; PULSE 65; TEMP 36.9; O2SAT 100
[2023-12-08 14:00] LABS: Atypical Lymph Absolute Manual 0.1 x10*3/uL; Lymphocytes Absolute Manual 0.8 X10*3/uL (1.2-4.9); Monocytes Absolute Manual 0.7 X10*3/uL (0.1-1.2); White Blood Count 7.6 X10*3/uL (4.8-10.8)
[2023-12-08] MEDS: ondansetron HCL 4 MG/2 ML VIAL IVPUSH (14:42)
[2023-12-08] MEDS: Famotidine/PF 20 MG in 0.9 % Sodium Chloride 50 ML 200 MG IV (14:43)
[2023-12-08 16:48] VITALS: BP 128/65; PULSE 64; RESP 18; TEMP 36.8; O2SAT 100
== END 2023-12-08 16:51 | disposition home or self-care (01) ==
PROVIDERS: Physician Assistant Medical; Emergency Provider Emergency Medicine; PCP Internal Medicine
DX: E83.42 Hypomagnesemia (principal); R11.2 Nausea with vomiting, unspecified; R94.31 Abnormal electrocardiogram [ECG] [EKG]; Z03.818 Encounter for observation for suspected exposure to other biological agents ruled out
CPT/HCPCS: 0241U; 80053; 83690; 83735; 85007; 85027; 93005; 96365; 96366; 96375; 99284; J2405; J3475

== ENCOUNTER → 2023-12-08 13:02 | Outpatient (BNV) | payer OTHER, SELFPAY | PROVIDERS: Emergency Provider Emergency Medicine; PCP Internal Medicine; Visit Provider Internal Medicine Cardiovascular Disease | DX: E87.8 Other disorders of electrolyte and fluid balance, not elsewhere classified (principal) | CPT/HCPCS: 93010 ==

== ENCOUNTER 2023-12-26 12:17 | Outpatient (AMB) | payer OTHER, SELFPAY ==
[2023-12-26 12:39] VITALS: BP 128/60; PULSE 58; O2SAT 100; BMI 19.8
--- NOTE | 2023-12-26 12:39 | A.OFFPC_ITS ---
Vital Signs 12/26/23 12:39 Height 4 ft 11 in Weight 98 lb 4 oz BMI 19.8 BP 128/60 Blood Pressure Location Lt brachial Position Sitting Pulse 58 Pulse Source Pulse Oximeter Pulse Oximetry (%) 100 Oxygen Delivery Method Room Air Intake Visit Reasons: [facility] Discharge 6.21 Vomiting, Diarrhea Manager Utility Required: No Accompanied by: Daughter Allergies ciprofloxacin Allergy (Unknown, Verified 12/26/23 12:59) Unknown lovastatin Adverse Reaction (Intermediate, Verified 12/26/23 12:59) upset stomach pravastatin [PRAVASTATIN] Adverse Reaction (Intermediate, Verified 12/26/23 12:59) UPSET STOMACH simvastatin [SIMVASTATIN] Adverse Reaction (Intermediate, Verified 12/26/23 12:59) UPSET STOMACH Medication List - Last Reconciled 12/26/23 by Yari Cuello MD atorvastatin 10 mg PO DAILY 90 days cholecalciferol (vitamin D3) 10 mcg PO DAILY 90 days fluticasone propionate 50 mcg/actuation (Allergy Relief (fluticasone)) 1 spray intranasal DAILY 30 days magnesium chloride (Slow-Mag) 143 mg (2 x 71.5 mg) PO DAILY 5 days omeprazole 10 mg PO DAILY 90 days ondansetron 4 mg PO Q8H PRN triamterene-hydrochlorothiazid 37.5-25 mg 1 tab PO QAM Tobacco use date assessed: 07/31/23 Fall risk assessment: No Falls in past year Last assessed Fall Risk: 12/26/23 Dental Screening Dental Screen Date: 07/31/23 HPI HPI Comments History of Present Illness Details This is a 68-year-old female with hypertension, pure hypercholesterolemia and GERD that comes today accompanied by daughter as hospital discharge follow-up due to food poisoning in 12/08/2023 that she had to go to the ER. She started experience nausea, abdominal pain and vomiting after eating a Mcchicken and had to go to the hospital. This resolved few hours later. No fever and no sick contacts. Labs were done and her magnesium was low. I told her that omeprazole can cause that and she will start taking it as needed instead of daily. Blood pressure stable. On statins for her cholesterol. No chest pain or shortness on breath. [facility] Medical History (Updated 12/26/23 @ 15:08 by Yari Cuello MD) Peripheral arterial disease Malnutrition Mild major depression, single episode Unintentional weight loss Allergic rhinitis GERD (gastroesophageal reflux disease) Pure hypercholesterolemia Essential hypertension Surgical History History of endoscopy History of colonoscopy H/O breast biopsy History of tubal ligation Family History Father No problems noted. Mother Hypertension Arthritis Kidney disease Recent heart attack Sister Diabetes Family/Other Diabetes Sister Diabetes Daughter No problems noted. Son No problems noted. 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 Ken Baum, Katja Martinez, Jesus Landeros and colleagues, with an educational doug from [employer]. Review of Systems Const All systems reviewed & are unremarkable except as noted in HPI and below Card Denies chest pain at rest, Denies chest pain with activity, Denies edema, Denies irregular heart rhythm, Denies claudication, Denies dyspnea, Denies dyspnea on exertion, Denies orthopnea, Denies paroxysmal nocturnal dyspnea and Denies slow heart rate Resp Denies cough, Denies dyspnea and Denies dyspnea on exertion Musc Denies atrophy, Denies deformity and Denies limited range of motion Physical exam (Primary Care) Vital Signs: Last Vital Signs Pulse 58 12/26/23 12:39 BP 128/60 12/26/23 12:39 Pulse Ox 100 12/26/23 12:39 Oxygen Delivery Method Room Air 12/26/23 12:39 BMI result Body Mass Index 19.8 Tobacco/Smoking Status: Tobacco use Status Tobacco use date assessed 07/31/23 12/26/23 12:39 Patient Tobacco Use Status Never used Tobacco 12/26/23 12:39 e-Cigarette/Vaping Use Never Used 12/26/23 12:39 Thrive Assessment: Date of Thrive Assessment Date Thrive assessed 07/31/23 12/26/23 12:39 Resp Effort & Inspection: normal respiratory effort Auscultation: clear to auscultation bilaterally Cardio Jugular venous distension: no JVD Rate: regular rate Rhythm: regular rhythm Heart sounds: S1 normal heart sound present and S2 normal heart sound present GI Inspection: Yes normal to inspection Palpation (GI): Soft to palpation and nontender Auscultation: normal bowel sounds Extrem General: Yes full ROM Assessment and Plan Assessment & Plan (1) Hypomagnesemia: Code(s): E83.42 - Hypomagnesemia Plan: Repeat magnesium. Continue magnesium supplements. (2) GERD (gastroesophageal reflux disease): Code(s): K21.9 - Gastro-esophageal reflux disease without esophagitis Qualifiers: Esophagitis presence: esophagitis presence not specified Qualified Code(s): K21.9 - Gastro-esophageal reflux disease without esophagitis Plan: Continue PPIs but only as needed. (3) Essential hypertension: Code(s): I10 - Essential (primary) hypertension Plan: Continue triamterene-hydrochlorothiazide. Blood pressure goal is equal or less than 130/80. (4) Pure hypercholesterolemia: Code(s): E78.00 - Pure hypercholesterolemia, unspecified Plan: Continue statins. Follow a low-cholesterol diet. Orders: Orders Magnesium Today E83.42 - Hypomagnesemia Coding Level of Care Code Est Pt Level 4 (45967) Complex EM visit Add On G2211 Diagnoses Hypomagnesemia E83.42 Gastroesophageal reflux disease, unspecified whether esophagitis present K21.9 Esophagitis presence: esophagitis presence not specified Essential hypertension I10 Pure hypercholesterolemia E78.00 Time Spent (min) 22
== END 2023-12-26 13:06 | disposition home or self-care (01) ==
PROVIDERS: PCP Internal Medicine; Visit Provider Internal Medicine
DX: E83.42 Hypomagnesemia (principal); K21.9 Gastro-esophageal reflux disease without esophagitis; I10 Essential (primary) hypertension; E78.00 Pure hypercholesterolemia, unspecified
CPT/HCPCS: 99214; G2211

== ENCOUNTER 2023-12-26 13:10 | Outpatient (REF) | payer OTHER, SELFPAY ==
[2023-12-26 14:40] LABS: Alanine Aminotransferase 17 U/L (0-31); Albumin Level 4.4 g/dL (3.5-5.0); Alkaline Phosphatase 42 U/L (39-117); Anion Gap 14 (12-20); Aspartate Amino Transferase 23 U/L (5-31); Bilirubin Total 0.5 mg/dL (0.0-1.0); Blood Urea Nitrogen 11 mg/dL (9-16); Calcium 9.8 mg/dL (8.4-10.2); Carbon Dioxide 31 mmol/L (22-29); Chloride 97 mmol/L (96-108); Cholesterol 177 mg/dL (<200); Estimated Glomerular Filt Rate > 60; Glucose Fasting 92 mg/dL (60-99); HDL Cholesterol 66 mg/dL (>40); LDL Cholesterol Calculated 94 mg/dL (<100); Magnesium 1.6 mg/dL (1.6-2.6); Potassium 2.9 mmol/L (3.3-5.1); Sodium 139 mmol/L (135-145); Total Protein 7.9 g/dL (6.5-8.0); Triglycerides 85 mg/dL (<150)
[2023-12-26 14:45] LABS: Vitamin D 25-OH Total 43.6 ng/mL (>30)
== END 2023-12-26 13:11 | disposition home or self-care (01) ==
LOC: HO.LAB 13:10
PROVIDERS: PCP Internal Medicine; Visit Provider Internal Medicine
DX: E78.00 Pure hypercholesterolemia, unspecified (principal); E78.5 Hyperlipidemia, unspecified; E55.9 Vitamin D deficiency, unspecified
CPT/HCPCS: 36415; 80053; 80061; 82306; 83735

== ENCOUNTER 2024-02-01 08:57 | Outpatient (AMB) | payer OTHER, SELFPAY ==
--- NOTE | 2024-02-01 09:01 | A.OFFPC_ITS ---
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 Required: No Accompanied by: Self / Same As Patient Allergies ciprofloxacin Allergy (Unknown, Verified 02/01/24 09:19) Unknown lovastatin Adverse Reaction (Intermediate, Verified 02/01/24 09:19) upset stomach pravastatin [PRAVASTATIN] Adverse Reaction (Intermediate, Verified 02/01/24 09:19) UPSET STOMACH simvastatin [SIMVASTATIN] Adverse Reaction (Intermediate, Verified 02/01/24 09:19) UPSET STOMACH Medication List - Last Reconciled 02/01/24 by Yari Cuello MD atorvastatin 10 mg PO DAILY 90 days cholecalciferol (vitamin D3) 10 mcg PO DAILY 90 days fluticasone propionate 50 mcg/actuation (Allergy Relief (fluticasone)) 1 spray intranasal DAILY 30 days magnesium chloride (Slow-Mag) 143 mg (2 x 71.5 mg) PO DAILY 5 days omeprazole 10 mg PO DAILY 90 days ondansetron 4 mg PO Q8H PRN potassium chloride ER 10 mEq PO DAILY 7 days triamterene-hydrochlorothiazid 37.5-25 mg 1 tab PO QAM Tobacco use date assessed: 07/31/23 Fall risk assessment: No Falls in past year Last assessed Fall Risk: 02/01/24 Dental Screening Dental Screen Date: 02/01/24 Did you have a dental visit in the last 12 months?: Yes Did you have a dental problem in the last 6 months where you did not have access to dental care?: No Was dental information given to patient?: Patient has dentist HPI HPI Comments History of Present Illness Details This is a 68-year-old female that comes for her physical exam. Pee mogram done less than a year ago. Pap smear done 2020. Colonoscopy done 2018 and she already has an appointment with Dr. Roberts for another colonoscopy this year due to family history of colon cancer. She said she has DEXA scan in [place] but I do not have the records. She said that the last 1 was less than 2 years ago and was order by OBGYN. No chest pain or shortness on breath. [facility] Medical History (Updated 02/01/24 @ 09:43 by Yari Cuello MD) Peripheral arterial disease Malnutrition Mild major depression, single episode Unintentional weight loss Allergic rhinitis GERD (gastroesophageal reflux disease) Pure hypercholesterolemia Essential hypertension Surgical History History of endoscopy History of colonoscopy H/O breast biopsy History of tubal ligation Family History Father No problems noted. Mother Hypertension Arthritis Kidney disease Recent heart attack Sister Diabetes Family/Other Diabetes Sister Diabetes Daughter No problems noted. Son No problems noted. 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 Ken Baum, Katja Martinez, Jesus Landeros and colleagues, with an educational doug from [employer]. Review of Systems Const All systems reviewed & are unremarkable except as noted in HPI and below Card Denies chest pain at rest, Denies chest pain with activity, Denies edema, Denies irregular heart rhythm, Denies claudication, Denies dyspnea, Denies dyspnea on exertion, Denies orthopnea, Denies paroxysmal nocturnal dyspnea and Denies slow heart rate Resp Denies cough, Denies dyspnea and Denies dyspnea on exertion GI Denies abdominal pain, Denies change in bowel habits, Denies excessive flatus, Denies nausea and Denies vomiting Denies urinary incontinence, Denies urinary hesitancy and Denies urinary urgency Musc Denies abnormal gait, Denies atrophy, Denies deformity and Denies limited range of motion Skin/Breast Denies bleeding lesions, Denies changing lesions and Denies rash Neuro Denies abnormal gait, Denies behavioral changes and Denies lack of coordination Psych Denies behavioral changes Physical exam (Primary Care) Vital Signs: Last Vital Signs BP 122/60 02/01/24 09:03 BMI result Body Mass Index 19.7 Tobacco/Smoking Status: Tobacco use Status Tobacco use date assessed 07/31/23 02/01/24 09:08 Patient Tobacco Use Status Never used Tobacco 02/01/24 09:08 e-Cigarette/Vaping Use Never Used 02/01/24 09:08 Thrive Assessment: Date of Thrive Assessment Date Thrive assessed 07/31/23 02/01/24 09:08 HENNM Head: Yes normal to inspection, Yes normocephalic and Yes atraumatic Ears: external ears normal Eyes General: appearance normal, both eyes and all related structures Eyelids: Yes eyelids normal Conjunctivae: conjunctivae normal Neck Neck: Yes normal visual inspection and Yes supple Resp Effort & Inspection: normal respiratory effort Auscultation: clear to auscultation bilaterally Cardio Jugular venous distension: no JVD Rate: regular rate Rhythm: regular rhythm Heart sounds: S1 normal heart sound present and S2 normal heart sound present GI Inspection: Yes normal to inspection Palpation (GI): Soft to palpation and nontender Auscultation: normal bowel sounds Skin General skin exam: no rashes or lesions noted Neuro General: no focal motor deficits Extrem General: Yes full ROM Psych Appearance: grossly normal Immunizations tetanus-diphtheria toxoids-Td 2 Lf unit-2 Lf unit/0.5 mL IM suspension Performing Provider: Yari Cuello MD Performing Location: [facility] Administered by: DIANNE Buck on 02/01/24 09:32 Dose Route Admin Location Dispensed Lot Number Expiration Date NDC Director Of Retail Analytics 0.5 mL IM Left Deltoid 0.5 mL [id number] 07/29/24 [address]-1 [employer] VIS Given Date VIS Provided VIS Publication Date 02/01/24 Single Vaccine 21 Eligibility Eligibility Date Funding Source Not [facility] Eligible 02/01/24 State funds Assessment and Plan Assessment & Plan (1) Physical exam: Code(s): Z00.00 - Encounter for general adult medical examination without abnormal findings Plan: Repeat in a year. Orders: Orders Magnesium Today E83.42 - Hypomagnesemia Comprehensive Met. Panel Today I10 - Essential (primary) hypertension Coding Level of Care Code Est Pt Prev Care >65y(98283) Diagnoses Physical exam Z00.00 Time Spent (min) 30
[2024-02-01 09:03] VITALS: BP 122/60; BMI 19.7
== END 2024-02-01 09:35 | disposition home or self-care (01) ==
PROVIDERS: PCP Internal Medicine; Visit Provider Internal Medicine
DX: Z00.00 Encounter for general adult medical examination without abnormal findings (principal); Z23 Encounter for immunization
CPT/HCPCS: 90471; 90714; 99397

== ENCOUNTER 2024-02-01 09:45 | Outpatient (REF) | payer OTHER, SELFPAY ==
[2024-02-01 12:02] LABS: Alanine Aminotransferase 19 U/L (0-31); Albumin Level 4.4 g/dL (3.5-5.0); Alkaline Phosphatase 46 U/L (39-117); Anion Gap 10 (12-20); Aspartate Amino Transferase 23 U/L (5-31); Bilirubin Total 0.4 mg/dL (0.0-1.0); Blood Urea Nitrogen 11 mg/dL (9-16); Calcium 9.7 mg/dL (8.4-10.2); Carbon Dioxide 34 mmol/L (22-29); Chloride 100 mmol/L (96-108); Estimated Glomerular Filt Rate > 60; Glucose Random 84 mg/dL (60-115); Magnesium 1.6 mg/dL (1.6-2.6); Potassium 3.2 mmol/L (3.3-5.1); Sodium 141 mmol/L (135-145); Total Protein 8.1 g/dL (6.5-8.0)
== END 2024-02-01 09:46 | disposition home or self-care (01) ==
LOC: HO.LAB 09:45
PROVIDERS: PCP Internal Medicine; Visit Provider Internal Medicine
DX: E83.42 Hypomagnesemia (principal); I10 Essential (primary) hypertension
CPT/HCPCS: 36415; 80053; 83735

== ENCOUNTER 2024-06-11 09:02 | Outpatient (REF) | payer OTHER, SELFPAY ==
--- OUTSIDE RECORDS SUMMARY | 2024-06-11 09:04 | XMS_ITS | Patient Health Record ---
Author Organization [facility] Address [address] [place] [address] Care Team Providers Care Content Curator Name Role Phone Yari Nielson Primary Care Provider Ken Conner Unavailable [phone] ALLERGIES Allergen (clinical drug ingredient) Drug/Non Drug [...] (Z12.11) Active confirmed Colon can cer screening (261226530) Problem Encounter for screening for malignant neoplasm of colon (Z12.11) Active confirmed 303743143 Problem Encounter for other preprocedural examination (Z01.818) Active confirmed Pre-procedure evaluation check (468650228) Problem Weight loss (R63.4) Active confirmed 89 883070 Problem Gastroesophageal reflux disease without esophagitis (K21.9) Active confirmed 671407748 Problem Preprocedural examination (Z01.818) Active confirmed 069159013163573 VITAL SIGNS Blood pressure diastolic 60 mm Hg 04/16/2024 Height 60 in 04/16/2024 Blood pressure systolic 122 mm Hg 04/16/2024 Weight 100 lbs 04/16/2024 BMI 19.53 kg/m2 04/16/2024 Encounters Encounter Location Date Provider Diagnosis [facility] [address] [place] [address] 04/16/2024 Ken Roberts Colon cancer screeni ng Z12.11 ; Encounter for other preprocedural examination Z01.818 and Gastroesophageal reflux disease without esophagitis K21.9 ASSESSMENTS Encounter Date Diagnosis Assessment Notes Treatment Notes Treatment Clinical Notes 04/16/2024 Colon cancer screeni ng (ICD-10 - Z12.11) Do not take the Triamterene-[place] chlorothiazide the day before or on the day of the colonosocpy 04/16/2024 Encounter for other preprocedural examination (ICD-10 - Z01.818) 04/16/2024 Gastroesophageal reflux disease without esophagitis (ICD-10 - K21.9) PLAN OF TREATMENT Future Test Test Name Order Date UPPER GI ENDOSCOPY 03/28/2014 COLONOSCOPY 07/27/2018 COLONOSCOPY 04/16/2024 Next Appt Details Provider Name:Ken Roberts , 08/16/2024 08:30:00 AM, [address] , [place], [place], [phone], Insurance Providers Payer Name Payer Address Payer Phone Subscriber Number Group Number Insured Name Patient Relationship to Insured Coverage Start Date Coverage End Date [facility] [address] [place] [address] [id number] SANJEEV SOUSA Self - patient is the insured MEDICAID [facility] [address] [place] [address] [id number] SANJEEV SOUSA Self - patient is the insured MEDICAL (GENERAL) HISTORY Medical History History ICD Code Screening colonoscopy 03-19-2009--diverti culosis and internal hemorrhoids HTN GERD--EGD 06/2014--small HH, mild reflux, no esophagitis, no Omalley's Hyperlipidemia Anemia--Hgb 12.3 in 12/2013, MCV 89 and n ormal Iron Denies [place],DM,CVA,Lung disease,renal dise ase Screening colonoscopy in Nov was negative but the prep was somewhat limited Surgical History Surgery Date(Month/Year) Cystoscopy 06/26/18 Tubal ligation Breast biopsy
== END 2024-06-11 09:03 | disposition home or self-care (01) ==
LOC: HO.MAMMO 09:02
PROVIDERS: PCP Internal Medicine; Visit Provider Internal Medicine
DX: Z12.31 Encounter for screening mammogram for malignant neoplasm of breast (principal)
CPT/HCPCS: 77063; 77067

== ENCOUNTER → 2024-06-11 09:30 | Outpatient (BNV) | payer OTHER, SELFPAY | PROVIDERS: PCP Internal Medicine; Visit Provider Internal Medicine | DX: Z12.31 Encounter for screening mammogram for malignant neoplasm of breast (principal) | CPT/HCPCS: 77063; 77067 ==

== ENCOUNTER 2024-08-16 06:58 | Day surgery (SDC) | payer OTHER, SELFPAY ==
--- OUTSIDE RECORDS SUMMARY | 2024-06-04 08:49 | XMS_ITS | Patient Health Record ---
Author Organization [facility] Address [address] [place] [address] Care Team Providers Care Forestry Pilot Name Role Phone Yari Nielson Primary Care Provider Ken Conner Unavailable [phone] ALLERGIES Allergen (clinical drug ingredient) Drug/Non Drug Allergy documented on EMR Reaction Allergy Type Onset Date Status ciprofloxacin Ciprofloxacin Unknown Drug Allergy Active lovastatin Lovastatin stomach upset Drug Allergy A ctive simvastatin Simvastatin Unknown Drug Allergy Act lenard pravastatin Pravastatin Sodium stomach upset Drug Allergy Active RESULTS Component Value Reference Range Notes MAMMOGRAM DIGITAL BILATERAL SCREEN Reviewed date:04/16/2024 03:32:59 PM Interpretation:Normal Performing Lab: Notes/Report: Normal REASON FOR REFERRAL No Information MEDICATIONS Medication SIG (Take, Route, Frequency, Duration) Notes Start Date End Date Status Slow-Mag 71.5-119 MG TAKE 2 TABLETS BY M OUTH EVERY DAY FOR 5 DAYS Oral for 5 Days Active Ondansetron 4 MG Oral for 3 Days Active Potassium Chloride ER 10 MEQ TAKE 1 TABLET BY MOUTH EVERY DAY FOR 7 DAYS Oral for 7 Days Active Vitamin D3 10 MCG (400 UNIT) TAKE 1 CAPSULE BY MOUTH EVERY DAY Oral for 90 Days Activ e Fluticasone Propionate 50 MCG/ACT 1 SPRAY INTRANASALLY DAILY INTO EACH NOSTRIL Nasal for 60 Days Active Triamterene-HCTZ 37.5-25 MG 1 tablet in the morning Orally Once a day for 30 day(s) Active Omeprazole 10 MG 1 capsule Orally Onc e a day PRN Active Atorvastatin Calcium 20 MG 1 tablet Orally Once a day Active IMMUNIZATIONS Vaccine Route Administration Date Status Comme nts Influenza Unknown 07/17/2018 Administered SOCIAL HISTORY Sex Assigned At : Social History Observation Description Sex Assigned At Unknown PROBLEMS Problem Type ICD Code Onset Dates Problem Status W/U Status Risk SNOMED Code Notes Problem Colon cancer screening (Z12.11) Active confirmed Colon can cer screening (142764710) Problem Encounter for screening for malignant neoplasm of colon (Z12.11) Active confirmed 992756518 Problem Encounter for other preprocedural examination (Z01.818) Active confirmed Pre-procedure evaluation check (073052018) Problem Weight loss (R63.4) Active confirmed 89 332254 Problem Gastroesophageal reflux disease without esophagitis (K21.9) Active confirmed 774912633 Problem Preprocedural examination (Z01.818) Active confirmed 291656747897073 VITAL SIGNS Blood pressure diastolic 60 mm Hg 04/16/2024 Height 60 in 04/16/2024 Blood pressure systolic 122 mm Hg 04/16/2024 Weight 100 lbs 04/16/2024 BMI 19.53 kg/m2 04/16/2024 Encounters Encounter Location Date Provider Diagnosis [facility] [address] [place] [address] 04/16/2024 Ken Roberts Colon cancer screeni ng Z12.11 ; Encounter for other preprocedural examination Z01.818 and Gastroesophageal reflux disease without esophagitis K21.9 ASSESSMENTS Encounter Date Diagnosis Assessment Notes Treatment Notes Treatment Clinical Notes 04/16/2024 Colon cancer screeni ng (ICD-10 - Z12.11) Do not take the Triamterene-[place] chlorothiazide the day before or on the day of the colonosocpy 04/16/2024 Encounter for other preprocedural examination (ICD-10 - Z01.818) 04/16/2024 Gastroesophageal reflux disease without esophagitis (ICD-10 - K21.9) PLAN OF TREATMENT Future Test Test Name Order Date UPPER GI ENDOSCOPY 03/28/2014 COLONOSCOPY 07/27/2018 COLONOSCOPY 04/16/2024 Next Appt Details Provider Name:Ken Roberts , 08/16/2024 08:30:00 AM, [address] , [place], [place], [phone], Insurance Providers Payer Name Payer Address Payer Phone Subscriber Number Group Number Insured Name Patient Relationship to Insured Coverage Start Date Coverage End Date [facility] [address] [place] [address] [id number] SANJEEV SOUSA Self - patient is the insured [facility] [address] [place] [address] [phone] [id number] SANJEEV SOUSA Self - patient is the insured MEDICAL (GENERAL) HISTORY Medical History History ICD Code Screening colonoscopy 03-19-2009--diverti culosis and internal hemorrhoids HTN GERD--EGD 06/2014--small HH, mild reflux, no esophagitis, no Omalley's Hyperlipidemia Anemia--Hgb 12.3 in 12/2013, MCV 89 and n ormal Iron Denies [place],DM,CVA,Lung disease,renal dise ase Screening colonoscopy in Nov was negative but the prep was somewhat limited Surgical History Surgery Date(Month/Year) Cystoscopy 06/26/18 Tubal ligation Breast biopsy
--- OUTSIDE RECORDS SUMMARY | 2024-06-04 08:49 | XMS_ITS ---
Author Organization [facility] Address [address] [place] [address] Care Team Providers Care Commercial Roofer Name Role Phone Yari Nielson Primary Care Provider Ken Conner Unavailable [phone] ALLERGIES Allergen (clinical drug ingredient) Drug/Non Drug Allergy documented on EMR Reaction Allergy Type Onset Date Status ciprofloxacin Ciprofloxacin Unknown Drug Allergy Active lovastatin Lovastatin stomach upset Drug Allergy A ctive simvastatin Simvastatin Unknown Drug Allergy Act lenard pravastatin Pravastatin Sodium stomach upset Drug Allergy Active REASON FOR VISIT Patient presents today for a recall colonoscopy MEDICATIONS Medication SIG (Take, Route, Frequency, Duration) [...] 1 tablet Orally Once a day Active PROBLEMS Problem Type ICD Code Onset Dates Problem Status W/U Status Risk SNOMED Code Notes Problem Colon cancer screening (Z12.11) Active confirmed Colon cancer screening (100487300) Problem Encounter for other preprocedural examination (Z01.818) Active confirmed Pre-procedure evaluation check (462266413) VITAL SIGNS BMI 19.53 kg/m2 04/16/2024 Blood pressure systolic 122 mm Hg 04/16/20 24 Blood pressure diastolic 60 mm Hg 024 Height 60 in 04/16/2024 Weight 100 lbs 04/16/2024 Encounters Encounter Location Date Provider Diagnosis [facility] [address] [place] [address] 04/16/2024 Ken Roberts Colon cancer screeni ng Z12.11 ; Encounter for other preprocedural examination Z01.818 and Gastroesophageal reflux disease without esophagitis K21.9 ASSESSMENTS Encounter Date Diagnosis Assessment Notes Treatment Notes Treatment Clinical Notes 04/16/2024 Colon cancer screeni ng (ICD-10 - Z12.11) Do not take the Triamterene-[place] chlorothiazide the day before or on the day of the colonosocpy 04/16/2024 Encounter for other preprocedural examination (ICD-10 - Z01.818) 04/16/2024 Gastroesophageal reflux disease without esophagitis (ICD-10 - K21.9) PLAN OF TREATMENT Treatment Notes Assessment Notes Colon cancer screening Do not take the T riamterene-Hydrochlorothiazide the day before or on the day of the colonosocpy Future Test Test Name Order Date COLONOSCOPY 04/16/2024 Next Appt Details Follow Up: prn, Reason: Provider Name:Ken Roberts , 08/16/2024 08:30:00 AM, [address] [place] [address], [id number], Progress Notes * Examination Category Sub-Category Detail Notes General Examination GENERAL APPEARANCE: pleasant , well nourished, well developed, in no acute distress HEAD: EYES: sclera non-icteric EARS: NOSE: THROAT: NECK/THYROID: no cervical lymphade nopathy, neck supple HEART: S1, S2 normal CHEST: LUNGS: clear to auscultatio n bilaterally ABDOMEN: normal bowel sounds, no guarding or rigidity, no guarding or rigidity, no masses palpable, soft, nontender, nondistended NEUROLOGIC: alert and oriented SKIN: nonjaundiced, no spi urmila angiomata EXTREMITIES: no edema PERIPHERAL PULSES: BACK: BREASTS: MUSCULOSKELETAL: MALE GENITOURINARY: LYMPH NODES: RECTAL EXAM: FEMALE GENITOURINARY: ORAL CAVITY: mucosa moist
[2024-08-14 14:04] VITALS: BMI 19.5
--- NOTE | 2024-08-15 09:08 | P.CONAN_ITS ---
Documented by User: Kelly Baez NP 08/15/24 09:08 HPI - Anesthesia Eval Consult details Narrative: 69yo F for Colonoscopy PMFSH Active Problems Active Problems: All Active Problems Hypomagnesemia (Acute) Physical exam (Acute) Elbow pain (Acute) Impingement syndrome of right shoulder (Acute) Muscle spasm (Acute) Vitamin D deficiency (Acute) Unintentional weight loss (Acute) Allergic rhinitis (Acute) GERD (gastroesophageal reflux disease) (Acute) Pure hypercholesterolemia (Acute) Essential hypertension (Acute) Past Medical History Medical History (Updated 08/14/24 @ 13:57 by Neha Rivera RN) Anemia Peripheral arterial disease Malnutrition Mild major depression, single episode Unintentional weight loss Allergic rhinitis GERD (gastroesophageal reflux disease) Pure hypercholesterolemia Essential hypertension Family History Family History Father No problems noted. Mother Hypertension Arthritis Kidney disease Recent heart attack Sister Diabetes Family/Other Diabetes Sister Diabetes Daughter No problems noted. Son No problems noted. Brother Colon cancer, Onset Age: 64 Surgical History Surgical History History of endoscopy History of colonoscopy H/O breast biopsy History of tubal ligation Social History Social History Housing: Apartment Alcohol intake: never Patient Tobacco Use Status: Never used Tobacco e-Cigarette/Vaping Use: Never Used Second Hand Smoke Exposure: No Use of substances other than those prescribed or required for medical reasons: No Are you DNR?: No Advance Directives: No Advance Directives Information Provided: Yes Advance Directives Date on File: 06/10/22 service: No Current occupational status: disabled 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 Cognitive needs: No Hearing needs: No Vision needs: No Meds Allergies Allergy/AdvReac Type Severity Reaction Status Date / Time ciprofloxacin Allergy Unknown Unknown Verified 08/16/24 08:22 lovastatin AdvReac Intermediate upset Verified 08/16/24 08:22 stomach pravastatin [PRAVASTATIN] AdvReac Intermediate UPSET Verified 08/16/24 08:22 STOMACH simvastatin [SIMVASTATIN] AdvReac Intermediate UPSET Verified 08/16/24 08:22 STOMACH Home Medications ?Medication ?Instructions ?Recorded ?Confirmed ?Last Taken ?Type atorvastatin 10 mg tablet 20 mg PO DAILY 08/14/24 08/14/24 Unknown History omeprazole 10 mg capsule,delayed 10 mg PO DAILY PRN Acid Reflux 08/14/24 08/14/24 Unknown History release Exam Height,Weight and Vital Signs: Height 5 ft Weight 45.359 kg Assessment and Plan Assessment Anesthesia Assessment: Chart Reviewed Documented by User: Chintan Raygoza MD 08/16/24 09:01 [facility] Past Medical History Medical History (Updated 08/14/24 @ 13:57 by Neha Rivera RN) Anemia Peripheral arterial disease Malnutrition Mild major depression, single episode Unintentional weight loss Allergic rhinitis GERD (gastroesophageal reflux disease) Pure hypercholesterolemia Essential hypertension Family History Family History Father No problems noted. Mother Hypertension Arthritis Kidney disease Recent heart attack Sister Diabetes Family/Other Diabetes Sister Diabetes Daughter No problems noted. Son No problems noted. Brother Colon cancer, Onset Age: 64 Family history of problems with anesthesia: No Surgical History Surgical History History of endoscopy History of colonoscopy H/O breast biopsy History of tubal ligation History of Problems with Anesthesia: No Social History Social History Housing: Apartment Alcohol intake: never Patient Tobacco Use Status: Never used Tobacco e-Cigarette/Vaping Use: Never Used Second Hand Smoke Exposure: No Use of substances other than those prescribed or required for medical reasons: No Are you DNR?: No Advance Directives: No Advance Directives Information Provided: Yes Advance Directives Date on File: 06/10/22 service: No Current occupational status: disabled 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 Cognitive needs: No Hearing needs: No Vision needs: No Meds Allergies Allergy/AdvReac Type Severity Reaction Status Date / Time ciprofloxacin Allergy Unknown Unknown Verified 02/28/25 08:22 lovastatin AdvReac Intermediate upset Verified 08/16/24 08:22 stomach pravastatin [PRAVASTATIN] AdvReac Intermediate UPSET Verified 08/16/24 08:22 STOMACH simvastatin [SIMVASTATIN] AdvReac Intermediate UPSET Verified 08/16/24 08:22 STOMACH Home Medications ?Medication ?Instructions ?Recorded ?Confirmed ?Last Taken ?Type atorvastatin 10 mg tablet 20 mg PO DAILY 08/14/24 08/14/24 Unknown History omeprazole 10 mg capsule,delayed 10 mg PO DAILY PRN Acid Reflux 08/14/24 08/14/24 Unknown History release Exam Airway Mallampati Class: II TM Dist: >3cm Neck ROM: Full Loose/Missing/Broken Teeth: No Heart: ok Lungs: ok Assessment and Plan Assessment Anesthesia Assessment: Anesthesia Plan Discussed Final Anesthetic Review Family History of Problems with Anesthesia: No History of Problems with Anesthesia: No NPO: Yes ASA Class: III Final Preanesthetic Review: No Changes in Pt Med Stat, Meds/Allgs Chart Reviewed, Consent Obtained/Reviewed and Anes Risks/Benef Reviewed Patient Risk: Intermediate Procedure Risk: Low Anesthetic Plan Anesthetic Plan: MAC: and Agree w/ Assess. and Plan Disposition: Standard PACU
[2024-08-16 08:22] VITALS: BP 139/77; PULSE 76; RESP 16; TEMP 36.9; O2SAT 100; BMI 19.5
[2024-08-16] MEDS: Lactated Ringers 1,000 ML 100 ML IVCONT (08:29)
--- NOTE | 2024-08-16 09:34 | P.BOP_ITS ---
Brief Operative Note Date of Service: 08/16/24 Pre-op diagnosis: Screening Post-op diagnosis: other (Colon polyp(not recovered)) Procedure: Colonoscopy to the cecum and TI with cold snare polypectomy x 1(not recovered) Surgeon: Ken Roberts MD Anesthesia: MAC Was an Gear Shaver Set Up Operator used for this Procedure?: No Estimated blood loss (mL): 2.0 Pathology: none sent Condition: stable Disposition: PACU
[2024-08-16 09:36] VITALS: BP 85/51; PULSE 55; RESP 16; TEMP 36.1; O2SAT 100
[2024-08-16 09:51] VITALS: BP 108/60; PULSE 53; RESP 16; TEMP 36.1; O2SAT 100
--- NOTE | 2024-08-16 10:48 | OP_ITS ---
DATE OF SERVICE: 08/16/2024 SURGEON: Ken Roberts MD INDICATIONS: The patient presents for evaluation of colorectal cancer screening. Full consent has been obtained from her for this, including risks of bleeding and perforation. PREOPERATIVE DIAGNOSIS: Colorectal cancer screening. POSTOPERATIVE DIAGNOSIS: PROCEDURE PERFORMED: Colonoscopy to the cecum and terminal ileum with cold snare polypectomy. ESTIMATED BLOOD LOSS: COMPLICATIONS: ANESTHESIA: Monitored anesthesia care. ASSISTANTS: SPECIMENS: POSTOPERATIVE DIAGNOSES: Colorectal cancer screening, small colon polyp, diverticulosis, and internal hemorrhoids. DESCRIPTION OF PROCEDURE: The patient was placed in left lateral decubitus position. The digital rectal exam revealed no abnormalities. The Olympus video pediatric colonoscope was entered into the rectum and advanced easily to the cecum. Once in the cecum, I did identify a normal-appearing cecal pouch with appendiceal orifice and a normal-appearing ileocecal valve. The terminal ileum was cannulated and appeared normal. The scope was withdrawn back in the colon. The entire cecum and ileocecal valve appeared normal. The scope was slowly withdrawn assessing all mucosal surfaces carefully. Preparation was excellent. In the ascending colon was an approximately 5 or 6 mm grossly adenomatous polyp, which was removed by cold snare polypectomy, but not recovered. The polypectomy site appeared clean, without any sign of residual polyp nor significant bleeding. I did not visualize any other polyps, colitis, or angiodysplasia. There was a mild amount of sigmoid diverticulosis. In the rectum, scope was retroflexed visualizing internal hemorrhoids, but no other pathology. The rectal mucosa appeared normal. The scope was straightened and withdrawn from the patient. She tolerated the procedure well and was returned to the recovery area in stable condition. IMPRESSION: 1. Colon polyp. 2. Diverticulosis. 3. Internal hemorrhoids. PLAN: Given the gross appearance of the polyp as appearing adenomatous, I would recommend a repeat colonoscopy in 5 years for surveillance. She was advised not to use any aspirin or NSAIDs for 1 week. She will otherwise see me on a p.r.n. basis. MD ANJANA Christy/ALEXANDRA / [phone]
== END 2024-08-16 10:24 | disposition home or self-care (01) ==
PROVIDERS: PCP Internal Medicine; Visit Provider Internal Medicine
PROC: 0DJD8ZZ Inspection of Lower Intestinal Tract, Via Natural or Artificial Opening Endoscopic (ICD-10-PCS; CPT 45378; principal; 2024-08-16 08:30)
DX: Z12.11 Encounter for screening for malignant neoplasm of colon (principal); K63.5 Polyp of colon; K57.30 Diverticulosis of large intestine without perforation or abscess without bleeding; K64.8 Other hemorrhoids; K21.9 Gastro-esophageal reflux disease without esophagitis; I10 Essential (primary) hypertension; D64.9 Anemia, unspecified; E78.5 Hyperlipidemia, unspecified; J30.9 Allergic rhinitis, unspecified; Z79.51 Long term (current) use of inhaled steroids; Z79.899 Other long term (current) drug therapy
CPT/HCPCS: 45385; J2003; J2704

== ENCOUNTER 2025-02-06 07:35 | Outpatient (AMB) | payer OTHER, SELFPAY ==
--- NOTE | 2025-02-06 07:38 | MHC.PC.OV ---
Vital Signs 02/06/25 07:39 Height 5 ft Weight 101 lb BMI 19.7 BP 114/60 Blood Pressure Location Lt brachial Position Sitting Pulse 64 Pulse Source Pulse Oximeter Temp 97.0 F Temp Source Temporal Artery Scan Pulse Oximetry (%) 99 Oxygen Delivery Method Room Air Intake Visit Reasons: annual Underground Utility Locator Required: No Accompanied by: Self / Same As Patient Allergies ciprofloxacin Allergy (Unknown, Verified 02/06/25 07:56) Unknown lovastatin Adverse Reaction (Intermediate, Verified 02/06/25 07:56) upset stomach pravastatin (PRAVASTATIN) Adverse Reaction (Intermediate, Verified 02/06/25 07:56) UPSET STOMACH simvastatin (SIMVASTATIN) Adverse Reaction (Intermediate, Verified 02/06/25 07:56) UPSET STOMACH Medication List - Last Reconciled 02/06/25 by Yari Cuello MD atorvastatin 20 mg PO DAILY cholecalciferol (vitamin D3) 10 mcg PO DAILY 90 days fluticasone propionate 50 mcg/actuation (Allergy Relief (fluticasone)) 1 spray intranasal DAILY 30 days omeprazole 10 mg PO DAILY PRN triamterene-hydrochlorothiazid 37.5-25 mg 1 tab PO QAM Tobacco use date assessed: 02/06/25 Fall risk assessment: No Falls in past year Last assessed Fall Risk: 02/06/25 Dental Screening Dental Screen Date: 02/06/25 Did you have a dental visit in the last 12 months?: Yes Did you have a dental problem in the last 6 months where you did not have access to dental care?: No Was dental information given to patient?: Patient has dentist HPI HPI Comments History of Present Illness Details The patient is a 69-year-old female presenting for an annual physical examination and preventative care review. She received a pneumococcal vaccination at age 64 and a tetanus vaccination last year, ensuring her immunizations are up to date. In May, she underwent a mammography, and earlier this year, a colonoscopy was performed during which a polyp was removed. The recommendation is to repeat the colonoscopy in five years. The patient has a history of allergic reactions to ciprofloxacin and adverse reactions to lovastatin, pravastatin, and simvastatin, which caused stomach pain. She is currently taking atorvastatin 20 mg for cholesterol management, vitamin D, a nasal spray, omeprazole 10 mg for acid reflux, and triamterene with hydrochlorothiazide. Her surgical history includes a breast biopsy, endoscopy, colonoscopy, and tubal ligation. Family history reveals that her mother had arthritis, hypertension, and kidney disease, which developed after age 85. Her father due to complications related to alcohol consumption. The patient denies smoking and alcohol consumption. She reports no chest pain, dyspnea, or urinary or bowel issues, although she occasionally experiences sleep disturbances. - Pneumococcal vaccination at age 64 - Tetanus vaccination last year - Mammography conducted in May - Colonoscopy performed this year with polyp removal, follow-up in five years - Bone density scan pending review [facility] Medical History (Updated 02/06/25 @ 08:13 by Yari Cuello MD) Anemia Peripheral arterial disease Malnutrition Mild major depression, single episode Unintentional weight loss Allergic rhinitis GERD (gastroesophageal reflux disease) Pure hypercholesterolemia Essential hypertension Surgical History History of endoscopy History of colonoscopy H/O breast biopsy History of tubal ligation Family History Father No problems noted. Mother Hypertension Arthritis Kidney disease Recent heart attack Sister Diabetes Family/Other Diabetes Sister Diabetes Daughter No problems noted. Son No problems noted. 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 1. Little interest or pleasure in doing things: not at all 2. Feeling down, depressed, or hopeless: not at all 3. Trouble falling or staying asleep, or sleeping too much: not at all 4. Feeling tired or having little energy: not at all 5. Poor appetite or overeating: not at all 6. Feeling bad about yourself - or that you are a failure or have let yourself or your family down: not at all 7. Trouble concentrating on things, such as reading the newspaper or watching television: not at all 8. Moving or speaking so slowly that other people could have noticed. Or the opposite - being so fidgety or restless that you have been moving around a lot more than usual: not at all 9. Thoughts that you would be better off or of hurting yourself in some way: not at all Total score: 0 Depression Screening Interpretation: Negative Depression Screening Done: Yes 42608 - PHQ-9 Billing: Yes Source: Developed by Drs. Ken Baum, Katja Martinez, Jesus Landeros and colleagues, with an educational doug from [employer]. Thrive Questionnaire Date Thrive assessed: 02/06/25 I am a: Patient What is your living situation today?: I have a steady place to live Within the past 12 months, did the food you bought not last and you didn't have the money to get more?: Never true Within the past 12 months, did you worry whether your food would run out before you got money to buy more?: Never true Do you have trouble paying for medicines?: I choose not to answer this question Do you have trouble getting transportation to medical appointments?: I choose not to answer this question Do you have trouble paying your heating and electricity bill?: I choose not to answer this question Do you have trouble taking care of your child, family member or friend?: No Do you have trouble with day-to-day activities such as bathing, preparing meals, shopping, managing finances, etc.?: No Are you currently unemployed and looking for a job?: Yes Are you interested in more education?: No Please select the resources that you would like help with: None Currently or been in a relationship where the following occur: No concerns reported THRIVE Score: 0 AUDIT C Alcohol Use Questionnaire (AUDIT-C) 1. How often do you have a drink containing alcohol?: Never 3. How often do you have six or more drinks on one occasion?: Never Total Score: 0 KANDICE-7 AMB Questionnaire KANDICE-7 Date KANDICE - 7 assessed: 02/06/25 Feeling nervous, anxious, or on edge: 0 = Not at all Not being able to stop or control worryin = Several days Worrying too much about different things: 1 = Several days Trouble relaxin = Several days Being so restless that it is hard to sit still: 1 = Several days Becoming easily annoyed or irritable: 0 = Not at all Feeling afraid as if something awful might happen: 0 = Not at all Total KANDICE-7 score (0-4 normal; 5-9 mild; 10-14 moderate; 15-21 severe): 4 Source: Developed by Drs. Ken Baum, Katja Martinez, Jesus Landeros and colleagues, with an educational doug from [employer]. KANDICE-7 Assessment Billing KANDICE-7 Assessment Tool: KANDICE-7 Assessment 88295 Review of Systems Const All systems reviewed & are unremarkable except as noted in HPI and below Card Denies chest pain at rest, Denies chest pain with activity, Denies edema, Denies irregular heart rhythm, Denies claudication, Denies dyspnea, Denies dyspnea on exertion, Denies orthopnea, Denies paroxysmal nocturnal dyspnea and Denies slow heart rate Resp Denies cough, Denies dyspnea and Denies dyspnea on exertion GI Denies abdominal pain, Denies change in bowel habits, Denies excessive flatus, Denies nausea and Denies vomiting Denies urinary incontinence, Denies urinary hesitancy and Denies urinary urgency Musc Denies abnormal gait, Denies atrophy, Denies deformity and Denies limited range of motion Skin/Breast Denies bleeding lesions, Denies changing lesions and Denies rash Neuro Denies abnormal gait, Denies behavioral changes, Denies confusion and Denies lack of coordination Psych Denies behavioral changes and Denies confusion Physical exam (Primary Care) Vital Signs: Last Vital Signs Temp 97.0 F 02/06/25 07:39 Pulse 64 02/06/25 07:39 BP 114/60 02/06/25 07:39 Pulse Ox 99 02/06/25 07:39 Oxygen Delivery Method Room Air 02/06/25 07:39 BMI result Body Mass Index 19.7 Tobacco/Smoking Status: Tobacco use Status Tobacco use date assessed 02/06/25 02/06/25 07:38 Patient Tobacco Use Status Never used Tobacco 02/06/25 07:38 e-Cigarette/Vaping Use Never Used 02/06/25 07:38 PHQ-9: PHQ-9 Score PHQ-9: Total score 0 02/06/25 07:44 Depression Screening Interpretation: Negative Thrive Assessment: Date of Thrive Assessment Date Thrive assessed 02/06/25 02/06/25 07:44 Currently or been in a relationship where the following occur: No concerns reported Const General: No confusion Orientation/consciousness: patient oriented x3 and No confusion HENMT Head: Yes normal to inspection, Yes normocephalic and Yes atraumatic Ears: external ears normal Eyes General: appearance normal, both eyes and all related structures Eyelids: Yes eyelids normal Conjunctivae: conjunctivae normal Neck Neck: Yes normal visual inspection and Yes supple Resp Effort & Inspection: normal respiratory effort Auscultation: clear to auscultation bilaterally Cardio Jugular venous distension: no JVD Rate: regular rate Rhythm: regular rhythm Heart sounds: S1 normal heart sound present and S2 normal heart sound present GI Inspection: Yes normal to inspection Palpation (GI): Soft to palpation and nontender Auscultation: normal bowel sounds Skin General skin exam: no rashes or lesions noted Neuro General: patient oriented x3, no focal motor deficits and No confusion Extrem General: Yes full ROM Psych Appearance: grossly normal Coding Level of Care Code Est Pt Level 3 (97402) Est Pt Prev Care >65y(97953) Diagnoses Physical exam Z00.00 Insomnia G47.00 Additional Codes KANDICE-7 Assessment Billing - KANDICE-7 Assessment Tool: KANDICE-7 Assessment 94609 ([id number]) PHQ-9 - 78935 - PHQ-9 Billing: Yes ([id number]) Time Spent (min) 32 Assessment & Plan Assessment & Plan (1) Physical exam: Code(s): Z00.00 - Encounter for general adult medical examination without abnormal findings Category: Medical (2) Insomnia: Code(s): G47.00 - Insomnia, unspecified Category: Medical Plan The patient will continue with atorvastatin 20 mg for cholesterol management and vitamin D supplementation. Magnesium will be prescribed to aid with sleep disturbances. A follow-up colonoscopy is recommended in five years due to previous polyp removal. Pending laboratory tests will assess cholesterol, sodium, and potassium levels to guide further management. Patient was informed and verbally consented to the use of an ambient scribe for clinic note documentation during this visit. Orders: Orders Lipid Panel Today E78.5 - Hyperlipidemia, unspecified Comprehensive [place]. Panel Fast Today I10 - Essential (primary) hypertension Complete Blood Count Auto Diff Today D64.9 - Anemia, unspecified Vitamin B12 and Folate Today E53.8 - Deficiency of other specified B group vitamins XR DEXA axial skeleton Today Z78.0 - Asymptomatic menopausal state Vitamin D 25-OH Total Today E55.9 - Vitamin D deficiency, unspecified IRON PROFILE Today D64.9 - Anemia, unspecified Medications: New magnesium glycinate 300 mg (3 x 100 mg) PO BEDTIME 270 tabs 1RF 90 days G47.00 - Insomnia, unspecified
[2025-02-06 07:39] VITALS: BP 114/60; PULSE 64; TEMP 36.1; O2SAT 99; BMI 19.7
== END 2025-02-06 08:06 | disposition home or self-care (01) ==
LOC: HO.HMCH 07:36
PROVIDERS: PCP Internal Medicine; Visit Provider Internal Medicine
DX: Z00.00 Encounter for general adult medical examination without abnormal findings (principal); G47.00 Insomnia, unspecified

== ENCOUNTER → 2025-02-06 07:35 | Outpatient (BNVA) | payer OTHER, SELFPAY | PROVIDERS: PCP Internal Medicine; Visit Provider Internal Medicine | DX: Z00.00 Encounter for general adult medical examination without abnormal findings (principal); G47.00 Insomnia, unspecified; E78.5 Hyperlipidemia, unspecified; I10 Essential (primary) hypertension; D64.9 Anemia, unspecified; E53.8 Deficiency of other specified B group vitamins; E55.9 Vitamin D deficiency, unspecified; Z78.0 Asymptomatic menopausal state | CPT/HCPCS: 96127; 99212; 99397 ==

== ENCOUNTER 2025-03-04 09:36 | Outpatient (REF) | payer OTHER, SELFPAY ==
--- OUTSIDE RECORDS SUMMARY | 2024-08-16 04:30 | XMS_ITS ---
Author Organization [facility] Address [address] [place] [address] Care Team Providers Care Nitrate Operator Name Role Phone Yari Nielson Primary Care Provider Ken Conner [phone] REASON FOR VISIT screening Encounters Encounter Location Date Provider Diagnosis [facility] Outpatient [address] [place], [place] [phone] 08/16/2024 Ken Roberts Colon cancer scree shellie [...] No Information Progress Notes * SANJEEV SOUSADOB: (69 yo F)Acc No.[id number]:08/16/2024 COLON WITH MAC Patient: Cyn BERNSTEIN SANJEEV Provider: Juanita Roberts MD :1955 A ge:69 Y S ex:Female Date:08/16/2024 Address:[address] [place] [address] [address] [id number] Pcp:Yari Cuello Subjective: * Chief Complaints: * 1 . Screening. * Medical History: Objective: * Vitals: Assessment: * Assessment: 1. C olon cancer screening - Z12.11 (Primary) 2 . C olon polyps - K63.5? 3. D iverticulosis of large intestine without perforation or abscess without bleeding - K57.30 4 . O ther hemorrhoids - K64.8 Plan: * Treatment: * Procedure Codes: 4 5385 LESION REMOVAL COLONOSCOPY, Modifiers: PT * * The named appointment provid er may or may not be the originator of this progress note, and it is not deemed complete until electronically signed by the appointment provider. Sign off status: Pending * Provider: Juanita Roberts MD Date: 0 08/16/2024 Generated for Ronny perez/Maegan/Langitting on: 0 03/04/2025 12:16 PM EDT
[2025-03-04 10:03] LABS: MANUAL DIFF FLAG NO
[2025-03-04 10:37] LABS: Hematocrit 35.6 % (37.0-47.0); Hemoglobin 11.7 g/dl (12.0-16.0); Imm Gran Abs Auto 0.01 X10*3/uL (0.00-0.03); Imm Gran Pct Auto 0.2 % (0.0-0.4); Lymphocytes Absolute Auto 1.8 X10*3/uL (1.2-4.9); Mean Corpuscular HGB Conc 32.9 g/dl (31.0-35.0); Mean Corpuscular Hemoglobin 29.3 pg (27.0-33.0); Mean Corpuscular Volume 89.2 fL (80.0-98.0); NRBC Abs Auto 0.000 X10*3/uL (0.0-0.012); NRBC Pct Auto 0.0 /100WBC (0.0-0.2); Platelet Count 287 X10*3/uL (160-400); Red Blood Count 3.99 X10*6/uL (4.20-5.50); White Blood Count 4.7 X10*3/uL (4.8-10.8)
[2025-03-04 11:42] LABS: Alanine Aminotransferase 25 U/L (0-31); Albumin Level 4.4 g/dL (3.5-5.0); Alkaline Phosphatase 43 U/L (39-117); Anion Gap 11 (12-20); Aspartate Amino Transferase 28 U/L (5-31); Blood Urea Nitrogen 11 mg/dL (9-16); Calcium 9.3 mg/dL (8.4-10.2); Carbon Dioxide 32 mmol/L (22-29); Chloride 100 mmol/L (96-108); Cholesterol 198 mg/dL (<200); Estimated Glomerular Filt Rate > 60; HDL Cholesterol 76 mg/dL (>40); Iron 135 mcg/dL (30-160); Percent Iron Saturation 65 % (15-50); Potassium 3.3 mmol/L (3.3-5.1); Sodium 140 mmol/L (135-145); Total Iron Binding Capacity 209 mcg/dL (228-428); Total Protein 7.7 g/dL (6.5-8.0); Triglycerides 90 mg/dL (<150); Unsaturated Iron Binding 74 ug/dL
[2025-03-04 12:09] LABS: Folate 13.9 ng/mL (> or = 4.0); Vitamin B12 321 pg/mL (200-900)
--- OUTSIDE RECORDS SUMMARY | 2025-03-04 12:16 | XMS_ITS | Patient Health Record ---
Author Organization [facility] Address [address] [place] [address] Care Team Providers Care Germination Worker Name Role Phone Yari Nielson Primary Care Provider Ken Conner Unavailable [phone] Allergies Allergen (clinical drug ingredient) Drug/Non Drug Allergy documented on EMR Reaction Allergy Type Onset Date Status ciprofloxacin Ciprofloxacin Unknown Drug Allergy Active lovastatin Lovastatin stomach upset Drug Allergy A ctive simvastatin Simvastatin Unknown Drug Allergy Act lenard pravastatin Pravastatin Sodium stomach upset Drug Allergy Active Results Component Value Reference Range Notes MAMMOGRAM DIGITAL BILATERAL SCREEN Reviewed date:04/16/2024 03:32:59 PM Interpretation:Normal Performing Lab: Notes/Report: Normal Reason For Referral No Information Medications Medication SIG (Take, Route, Frequency, Duration) Notes [...] 1 tablet Orally Once a day Active Immunizations Vaccine Route Administration Date Status Comme nts Influenza Unknown 07/17/2018 Administered Problems Problem Type SNOMED Code ICD Code Onset Dates Problem Status W/U Status Risk Notes Problem Colon cancer screening (060512369) Colon cancer screening (Z12.11) Active confirmed Problem 225743744 Encounter for screening for malignant neoplasm of colon (Z12.11) Active confirmed Problem Pre-procedure evaluation check (310033945) Encounter for other preprocedural examination (Z01.818) Active confirmed Problem 06468930 Weight loss (R63.4) Active confirmed Problem 081884065 Gastroesophageal reflux disease without esophagitis (K21.9) Active confirmed Problem [id number] Preprocedural examination (Z01.818) Active confirmed Vital Signs Blood pressure diastolic 60 mm Hg 04/16/2024 Height 60 in 04/16/2024 Blood pressure systolic 122 mm Hg 04/16/2024 Weight 100 lbs 04/16/2024 BMI 19.53 kg/m2 04/16/2024 Encounters Encounter Location Date Provider Diagnosis [facility] [address] [place] [id number] 08/16/2024 Ken Roberts Colon cancer screeni ng Z12.11 ; Colon polyps K63.5 ; Diverticulosis of large intestine without perforation or abscess without bleeding K57.30 and Other hemorrhoids K64.8 [facility] [address] [place] [address] 04/16/2024 Ken Roberts Colon cancer screeni ng Z12.11 ; Encounter for other preprocedural examination Z01.818 and Gastroesophageal reflux disease without esophagitis K21.9 Assessments Encounter Date Diagnosis (ICD Code) Assessment Notes Treatment Notes Treatment Clinical Notes Section Notes 08/16/2024 Colon cancer screening (ICD-10 - Z12.11) 08/16/2024 Colon polyps (ICD-10 - K63.5) 04/16/2024 Colon cancer screening (ICD-10 - Z12.11) Do not take the Triamterene-Hy drochlorothiaz fadi the day before or on the day of the colonosocpy Overall, Shirley appears well. Given the colonoscopy over 5 years ago with a somewhat limited prep, I did recommend a followup colonoscopy for further screening purposes despite her not having any particular family history of first-degree relatives with colorectal cancer. We did review the rationale for this in regard to colorectal cancer prevention. Full consent was obtained for this, including risks of bleeding and perforation. The procedure will be done monitored anesthesia care. We did review that her previus procedure's prep was somewhat limited and she advised me today that she really did not do the entire prep as she was feeling somewhat weak. I did advise her to be sure to drink the entire prep and to also drink a lot of fluids including things like chicken broth so she does not become too weak or dehydrated. I also advised her not to use her diuretic the day before or on the day of the procedure. Her reflux seems quite stable on her current regimen of her PPI and I advised her to continue that as well. I don't think she needs any further evaluation of that given the negative endoscopy in the past and no new or worrisome symptoms in that regard. Shirley and her daughter were comfortable with this plan. Thank you again for allowing me to participate in Shirley's care. I shall continue to keep you advised of her progress. 04/16/2024 Encounter for other preprocedural examination (ICD-10 - Z01.818) Overall, Shirley appears well. Given the colonoscopy over 5 years ago with a somewhat limited prep, I did recommend a followup colonoscopy for further screening purposes despite her not having any particular family history of first-degree relatives with colorectal cancer. We did review the rationale for this in regard to colorectal cancer prevention. Full consent was obtained for this, including risks of bleeding and perforation. The procedure will be done monitored anesthesia care. We did review that her previus procedure's prep was somewhat limited and she advised me today that she really did not do the entire prep as she was feeling somewhat weak. I did advise her to be sure to drink the entire prep and to also drink a lot of fluids including things like chicken broth so she does not become too weak or dehydrated. I also advised her not to use her diuretic the day before or on the day of the procedure. Her reflux seems quite stable on her current regimen of her PPI and I advised her to continue that as well. I don't think she needs any further evaluation of that given the negative endoscopy in the past and no new or worrisome symptoms in that regard. Shirley and her daughter were comfortable with this plan. Thank you again for allowing me to participate in Shirley's care. I shall continue to keep you advised of her progress. 08/16/2024 Diverticulosis of large intestine without perforation or abscess without bleeding (ICD-10 - K57.30) 04/16/2024 Gastroesophageal reflux disease without esophagitis (ICD-10 - K21.9) Overall, Shirley appears well. Given the colonoscopy over 5 years ago with a somewhat limited prep, I did recommend a followup colonoscopy for further screening purposes despite her not having any particular family history of first-degree relatives with colorectal cancer. We did review the rationale for this in regard to colorectal cancer prevention. Full consent was obtained for this, including risks of bleeding and perforation. The procedure will be done monitored anesthesia care. We did review that her previus procedure's prep was somewhat limited and she advised me today that she really did not do the entire prep as she was feeling somewhat weak. I did advise her to be sure to drink the entire prep and to also drink a lot of fluids including things like chicken broth so she does not become too weak or dehydrated. I also advised her not to use her diuretic the day before or on the day of the procedure. Her reflux seems quite stable on her current regimen of her PPI and I advised her to continue that as well. I don't think she needs any further evaluation of that given the negative endoscopy in the past and no new or worrisome symptoms in that regard. Shirley and her daughter were comfortable with this plan. Thank you again for allowing me to participate in Shirley's care. I shall continue to keep you advised of her progress. 08/16/2024 Other hemorrhoids (ICD-10 - K64.8) Plan Of Treatment Future Test Test Name Order Date UPPER GI ENDOSCOPY 03/28/2014 COLONOSCOPY 07/27/2018 COLONOSCOPY 04/16/2024 Insurance Providers Payer Name Payer Address Payer Phone Subscriber Number Group Number Insured Name Patient Relationship to Insured Coverage Start Date Coverage End Date [facility] [address] Attn Claims [place] [id number] SHIRLEY SOUSA Self - patient is the insured MEDICAID OF [facility] [address] [place] [address] [id number] SHIRLEY SOUSA Self - patient is the insured Medical (General) History Medical History History ICD Code Screening colonoscopy 03-19-2009--diverti culosis and internal hemorrhoids HTN GERD--EGD 06/2014--small HH, mild reflux, no esophagitis, no Omalley's Hyperlipidemia Anemia--Hgb 12.3 in 12/2013, MCV 89 and n ormal Iron Denies ID,DM,CVA,Lung disease,renal dise ase Screening colonoscopy in Nov was negative but the prep was somewhat limited Surgical History Surgery Date(Month/Year) Cystoscopy 06/26/18 Tubal ligation Breast biopsy
--- OUTSIDE RECORDS SUMMARY | 2025-03-04 12:16 | XMS_ITS | Encounter Summary ---
Author Organization [employer] Address [address] [place] [address] Care Team Providers Care Rehab Manager Name Role Phone Unavailable Primary Care Provider Unavailabl e Encounter Details Date Type Department Care Team (Latest Contact Info) Description 09/23/2020 Abstract [facility] CONVERSIONS Dental, Provider, DDS Social History Tobacco Use Types Packs/Day Years Used Date Smoking Tobacco: Never Assessed Comments Unknown Sex and Gender Information Value Date Recorded Sex Assigned at Female 04/18/2022 10:23 AM EDT Legal Sex Female 10:23 AM EDT Gender Identity Female 04/18/2022 10:23 AM EDT Sexual Orientation Straight 04/18/2022 10 :23 AM EDT documented as of this encounter Plan of Treatment Upcoming Encounters Date Type Department Care Team (Late st Contact Info) Description 03/06/2025 11:00 AM EDT Office Visit [facility] [address] [place] [address] Sage Arroyo, ROSINA [address] [place] [address] 07/14/2025 10:15 AM EST Office Visit [facility] [address] [place] [address] Roque Hennessy documented as of this encounter Visit Diagnoses Not on filedocumented in this encounter
--- OUTSIDE RECORDS SUMMARY | 2025-03-04 12:16 | XMS_ITS | Encounter Summary ---
Author Organization [email or web address] Address [address] [place] [address] Care Team Providers Care Account Liaison Hospice Name Role Phone Unavailable Primary Care Provider Unavailabl e Encounter Details Date Type Department Care Team (Latest Contact Info) Description 03/20/2019 Abstract [facility] CONVERSIONS Dental, Provider, DDS Social History Tobacco [...] Description 03/06/2025 11:00 AM EDT Office Visit [facility] [address] [place] [address] Sage Arroyo, ROSINA [address] [place] [address] 07/14/2025 10:15 AM EST Office Visit [facility] [address] [place] [address] Roque Hennessy documented as of this encounter Visit Diagnoses Not on filedocumented in this encounter
--- OUTSIDE RECORDS SUMMARY | 2025-03-04 12:16 | XMS_ITS | Encounter Summary ---
Author Organization [employer] Address [address] [place] [address] Care Team Providers Care Classroom Technology Technician Name Role Phone Unavailable Primary Care Provider Unavailabl e Encounter Details Date Type Department Care Team (Latest Contact Info) Description 12/23/2021 Abstract [facility] CONVERSIONS Dental, Provider, DDS Social History [...] Description 03/06/2025 11:00 AM EDT Office Visit [facility] [address] [place] [address] Sage Arroyo, ROSINA [address] [place] [address] 07/14/2025 10:15 AM EST Office Visit [facility] [address] [place] [address] Roque Hennessy documented as of this encounter Visit Diagnoses Not on filedocumented in this encounter
--- OUTSIDE RECORDS SUMMARY | 2025-03-04 12:16 | XMS_ITS | Clinical Summary ---
Author Organization [employer] Address [address] [facility] [address] [place] [address] Care Team Providers Care Cutlery Grinder Name Role Phone Unavailable Primary Care Provider Unavailabl e Allergies No known active allergies Medications lisinopril 2.5 MG tablet Take 1 tablet by mouth at bed time. 07/22/2014 Active cholecalciferol (Vitamin D-3) 10 MCG (400 UNIT) capsule Active cyanocobalamin (Vitamin B-12) 500 MCG tablet Activ e hydroCHLOROthia zide (HYDRODiuril) 12.5 MG tablet Take 1 tablet by mouth at bed time. Active ibuprofen 600 MG tablet Take 1 tablet by mouth every 8 (eight) hours. 09/09/2016 Active lovastatin (Mevacor) 40 MG tablet Take 1 tablet by mouth at bed time. Active omeprazole (PriLOSEC) [address] capsule Take 1 capsule by mouth at bed time. Active Multiple Vitamins-Minera ls (Multivitamin) liquid Active atorvastatin (Lipitor) 10 MG tablet 12/19/2023 Active potassium chloride CR (Klor-Con) 10 MEQ ER tablet 12/26/2023 Activ e triamterene-hyd rochlorothiazid e (Maxzide-25) 37.5-25 MG tablet Take 1 tablet by mouth in the morning. Active Active Problems No known active problems Encounters Date Type Department Care Team Description 02/21/2025 10:00 AM EDT Office Visit [facility] ADULT DENTAL [address] [place] [address] Sage Arroyo DMD Full coverage crown needed for tooth at risk for fracture (Primary Dx) 01/30/2025 9:30 AM EDT Office Visit [facility] ADULT DENTAL [address] [place] [address] Sage Arroyo DMD Defective dental buddhism (Primary Dx); Dental caries 01/07/2025 10:00 AM EDT Office Visit [facility] ADULT DENTAL [address] [place] [address] Roque Hennessy Dental calculus (Primary Dx); Defective dental buddhism; Full coverage crown needed for tooth at risk for fracture from Last 3 Months Social History Tobacco Use Types Packs/Day Years Used Date Smoking Tobacco: Never Passive Smoke Exposure: Never Smokeless Tobacco: Never Tobacco Cessation:Counseling Given: Not Answered Alcohol Use Standard Drinks/Week Comments Yes 0 (1 standard drink = 0.6 oz pur e alcohol) Comments Unknown Sex and Gender Information Value Date Recorded Sex Assigned at Female 04/18/2022 10:23 AM EDT Legal Sex Female 10:23 AM EDT Gender Identity Female 04/18/2022 10:23 AM EDT Sexual Orientation Straight 04/18/2022 10 :23 AM EDT Last Filed Vital Signs Vital Sign Reading Time Taken Comments Blood Pressure 116/78 02/21/2025 10:27 AM EDT Pulse 66 01/07/2025 10:21 AM EDT Temperature - - Respiratory Rate - - Oxygen Saturation - - Inhaled Oxygen Concentration - - Weight - - Height - - Body Mass Index - - Plan of Treatment Upcoming Encounters Date Type Department Care Team (Late st Contact Info) Description 03/06/2025 11:00 AM EDT Office Visit [facility] ADULT DENTAL [address] [place] [address] Sage Arroyo, ROSNIA [address] [place] [address] 07/14/2025 10:15 AM EST Office Visit [facility] ADULT DENTAL [address] [place] [address] Roque Hennessy Health Maintenance Due Date Last Done Comments CT Colonography 1954 Colonoscopy 1954 Colorectal Cancer Screening 1954 Depression Screening 1954 FIT DNA/Cologuard 1954 FIT 1954 FOBT 1954 Lipid Panel 1954 SDOH Screening 1954 Sigmoidoscopy 1954 Alcohol/Substance Use Screening 1966 Hepatitis C Screening 1972 Mammogram 1994 Zoster Vaccines (2 of 3) 09/02/2015 07/08/2015 Pneumococcal Vaccine: 50+ Years (2 of 2 - PCV) 08/12/2020 08/12/2019 DTaP/Tdap/Td Vaccines (1 - Tdap) 02/02/2024 02/01/2024 Dental X-Ray: Bitewings 12/28/2024 12/28/19 24, 12/23/2021, 06/22/2021, Additional history exists COVID-19 Vaccine ( season) 2025 06/07/2022, 05/11/2021, 09/13/2020, Additional history exists Influenza Vaccine (#1) 2025 , 06/08/2023, 05/05/2022, Additional history exists Dental Oral Exam 07/11/2025 01/07/2025, 04/2024, 12/23/2021, Additional history exists Dental Prophylaxis 07/11/2025 01/07/2025, 0 07/03/2024, 12/28/2023, Additional history exists Tobacco Screening 02/21/2026 02/21/2025 Dental X-Ray: Full Mouth 12/28/2026 024, 03/20/2019, 09/07/2015 RSV Patients and Patients Aged 60 years or older (1 - 1-dose 75+ series) 2029 HIB Vaccines Aged Out No longer eligi ble based on patient's age to complete this topic HPV Vaccines Aged Out No longer eligi ble based on patient's age to complete this topic Hepatitis A Vaccines Aged Out No long er eligible based on patient's age to complete this topic Hepatitis B Vaccines Aged Out No long er eligible based on patient's age to complete this topic IPV Vaccines Aged Out No longer eligi ble based on patient's age to complete this topic Meningococcal B Vaccine Aged Out No l onger eligible based on patient's age to complete this topic Meningococcal Vaccine Aged Out No titus roni eligible based on patient's age to complete this topic RSV under 20 months Aged Out No longe r eligible based on patient's age to complete this topic Rotavirus Vaccines Aged Out No longer eligible based on patient's age to complete this topic Procedures Procedure Name Priority Date/Time Associated Diagnosis Comments CASE PRESENTATION, DETAILED AND EXTENSIVE TREATMENT PLANNING Routine 02/21/2025 10:00 AM EDT Full coverage crown needed for tooth at risk for fracture 12,13 CROWN PREP Routine 02/21/2025 10:0 0 AM EDT Full coverage crown needed for tooth at risk for fracture 13 CORE BUILDUP, INCL ANY PINS WHEN REQ Routine 02/21/2025 10:00 AM EDT Full coverage crown needed for tooth at risk for fracture 12 CORE BUILDUP, INCL ANY PINS WHEN REQ Routine 02/21/2025 10:00 AM EDT Full coverage crown needed for tooth at risk for fracture CASE PRESENTATION, DETAILED AND EXTENSIVE TREATMENT PLANNING Routine 01/30/2025 9:30 AM EDT Defective dental buddhism Dental caries 9 MIFL RESIN-BASED COMPOSITE - 4 OR MORE SURFACES (ANTERIOR) Routine 01/30/2025 9:30 AM EDT Defective dental buddhism 11 DL RESIN-BASED COMPOSITE - 2 SURF, ANTERIOR Routine 01/30/2025 9:30 AM EDT Dental caries PERIODIC ORAL EVALUATION - ESTABLISHED PATIENT Routine 01/07/2025 10:00 AM EDT Defective dental buddhism Full coverage crown needed for tooth at risk for fracture CASE PRESENTATION, DETAILED AND EXTENSIVE TREATMENT PLANNING Routine 01/07/2025 10:00 AM EDT Defective dental buddhism Full coverage crown needed for tooth at risk for fracture ORAL HYGIENE INSTRUCTIONS Routine 01/07/2025 10:00 AM EDT Defective dental buddhism Full coverage crown needed for tooth at risk for fracture PROPHYLAXIS - ADULT Routine 01/07/2025 1 0:00 AM EDT Defective dental buddhism Full coverage crown needed for tooth at risk for fracture INTRAORAL - COMPLETE SERIES OF RADIOGRAPHIC IMAGES Routine 12/28/2023 10:00 AM EDT from Last 3 Months or Most Recently Relevant to Health Maintenance Insurance DENTAL - [facility]
== END 2025-03-04 09:37 | disposition home or self-care (01) ==
LOC: HO.LAB 09:36
PROVIDERS: PCP Internal Medicine; Visit Provider Internal Medicine
DX: E78.5 Hyperlipidemia, unspecified (principal); I10 Essential (primary) hypertension; E55.9 Vitamin D deficiency, unspecified; D64.9 Anemia, unspecified; E53.8 Deficiency of other specified B group vitamins
CPT/HCPCS: 36415; 80053; 80061; 82306; 82607; 82746; 83540; 85025

== ENCOUNTER 2025-06-11 09:14 | Outpatient (AMB) | payer OTHER, SELFPAY ==
--- OUTSIDE RECORDS SUMMARY | 2024-08-16 03:30 | XMS_ITS ---
Author Organization [facility] Address [address] [place] [address] Care Team Providers Care Entertainment Usher Name Role Phone Yari Nielson Primary Care Provider Ken Conner [phone] REASON FOR VISIT screening Encounters Encounter Location Date Provider Diagnosis [facility] Outpatient [address] [place], [place] [phone] 08/16/2024 Ken Roberts Colon cancer scree shellie [...] Notes * SANJEEV SOUSADOB: (70 yo F)Acc No.[id number]:08/16/2024 COLON WITH MAC Patient: MCKENNA HOLLISMEN Provider: Juanita Roberts MD :1955 A ge:69 Y S ex:Female Date:08/16/2024 Address:[address] [place] [address] [address] [id number] Pcp:Yari Cuello Subjective: * Chief Complaints: * [...] Modifiers: PT Billing Information: * Procedure Codes: 66546 LESION REMOVAL COLONOSCOPY. Modifiers: PT * The named appointment provid er may or may not be the originator of this progress note, and it is not deemed complete until electronically signed by the appointment provider. Sign off status: Pending * Provider: Juanita Roberts MD Date: 0 08/16/2024 Generated for Ronny perez/Maegan/Langitting on: 08/12/2024 09:19 AM EST
--- OUTSIDE RECORDS SUMMARY | 2025-06-11 09:20 | XMS_ITS | Encounter Summary ---
Author Organization [employer] Address [address] [facility] [address] [place] [address] Care Team Providers Care Oral And Maxillofacial Surgery Name Role Phone Unavailable Primary Care Provider Unavailabl e Encounter Details Date Type Department Care Team (Latest Contact Info) Description 12/23/2021 Abstract [facility] CONVERSIONS Dental, Provider, DDS Social History [...] Care Team (Late st Contact Info) Description 07/14/2025 10:15 AM EST Office Visit [facility] ADULT DENTAL [address] [place] [address] Roque Hennessy documented as of this encounter Visit Diagnoses Not on filedocumented in this encounter
--- OUTSIDE RECORDS SUMMARY | 2025-06-11 09:20 | XMS_ITS | Encounter Summary ---
Author Organization [employer] Address [address] [facility] [address] [place] [address] Care Team Providers Care Rubber Turner Name Role Phone Unavailable Primary Care Provider Unavailabl e Encounter Details Date Type Department Care Team (Latest Contact Info) Description 09/23/2020 Abstract [facility] CONVERSIONS Dental, Provider, DDS Social [...] Description 07/14/2025 10:15 AM EST Office Visit [facility] ADULT DENTAL [address] [place] [address] Roque Hennessy documented as of this encounter Visit Diagnoses Not on filedocumented in this encounter
--- OUTSIDE RECORDS SUMMARY | 2025-06-11 09:20 | XMS_ITS | Patient Health Record ---
Author Organization [facility] Address [address] [place] [address] Care Team Providers Care Tank Furnace Operator Name Role Phone Yari Nielson Primary Care Provider Ken Conner Unavailable [phone] Allergies Allergen (clinical drug ingredient) Drug/Non Drug Allergy documented on EMR Reaction Allergy Type Onset Date Status pravastatin Pravastatin Sodium stomach upset Drug Allergy Active simvastatin Simvastatin Unknown Drug Allergy Act lenard lovastatin Lovastatin stomach upset Drug Allergy A ctive ciprofloxacin Ciprofloxacin Unknown Drug Allergy Active Reason For Referral No Information Medications Medication SIG (Take, Route, Frequency, Duration) Notes Start Date End Date Status Slow-Mag 71.5-119 MG Tablet Delayed Release TAKE 2 TABLETS BY MOUTH EVERY DAY FOR 5 DAYS Oral; Duration: 5 Days Active Ondansetron 4 MG Tablet Disintegrating Oral; Duration: 3 Days Act lenard Potassium Chloride ER 10 MEQ Tablet Extended Release TAKE 1 TABLET BY MOUTH EVERY DAY FOR 7 DAYS Oral; Duration: 7 Days Active Vitamin D3 10 MCG (400 UNIT) Capsule TAKE 1 CAPSULE BY MOUTH EVERY DAY Oral; Duration: 90 Days Active Fluticasone Propionate 50 MCG/ACT Suspension 1 SPRAY INTRANASALLY DAILY INTO EACH NOSTRIL Nasal; Duration: 60 Days Active Triamterene-HCTZ 37.5-25 MG Tablet 1 tablet in the morning Orally Once a day; Duration: 30 day(s) Active Omeprazole 10 MG Capsule Delayed Release 1 capsule Orally Once a day PRN Active Atorvastatin Calcium 20 MG Tablet 1 tablet Orally Once a day Active Immunizations Vaccine Route Administration Date Status Comme nts Influenza Unknown 07/17/2018 Administered Social History Social History Additional Details Category Social Info Options Details Miscellaneous: Marital status: Occupation: retired Section Notes: Nonsmoker; no sig. alcohol Nonsmoker; no sig. alcohol Nonsmoker; no sig. alcohol Problems Problem Type SNOMED Code ICD Code Onset Dates Problem Status W/U Status Risk Notes Problem Colon cancer screening (998381876) Colon cancer screening (Z12.11) Active confirmed Problem Screening for malignant neoplasm of colon (933425698) Encounter for screening for malignant neoplasm of colon (Z12.11) Active confirmed Problem Pre-procedure evaluation check (854361540) Encounter for other preprocedural examination (Z01.818) Active confirmed Problem Weight loss (719389879) Weight loss (R63.4) Active confirmed Problem Gastroesophageal reflux disease without esophagitis (524430572) Gastroesophageal reflux disease without esophagitis (K21.9) Active confirmed Problem Preprocedural examination (461647461876867) Preprocedural examination (Z01.818) Active confirmed Encounters Encounter Location Date Provider Diagnosis [facility] [place] [facility] [address] [place] [address] [id number] 08/16/2024 Ken Roberts Colon cancer wilbere shellie Z12.11 ; Colon polyps K63.5 ; [...] Insured Coverage Start Date Coverage End Date [facility] [address] Attn Claims LILLY Devries [id number] SANJEEV SOUSA Self - patient is the insured [facility]ID [facility] [address] [place] [address] [id number] SOUSA, SANJEEV Self - patient is the insured Medical (General) History Medical History History ICD Code Screening colonoscopy 03-19-2009--diverti culosis and internal hemorrhoids HTN GERD--EGD 06/2014--small HH, mild reflux, no esophagitis, no Omalley's Hyperlipidemia Anemia--Hgb 12.3 in 12/2013, MCV 89 and n ormal Iron Denies [place],DM,CVA,Lung disease,renal dise ase Screening colonoscopy in Nov was negative but the prep was somewhat limited Surgical History Surgery Date(Month/Year) Breast biopsy Tubal ligation Cystoscopy 06/26/18
--- OUTSIDE RECORDS SUMMARY | 2025-06-11 09:20 | XMS_ITS | Clinical Summary ---
Author Organization [employer] Address [address] [facility] [address] [place] [address] Care Team Providers Care Faculty Head Name Role Phone Unavailable Primary Care Provider [...] mouth in the morning. Active Active Problems Problem Noted Date Diagnosed Date Colon cancer screening 03/06/2025 Gastroesophageal reflux disease without esophagi tis 03/06/2025 Hyperlipemia 03/06/2025 Preprocedural examination 03/06/2025 Weight loss 03/06/2025 Allergic rhinitis 01/31/2025 Chronic GERD 01/31/2025 Depressive disorder 06/27/2013 Anemia 02/21/2013 Hypercholesterolemia 02/21/2013 Hypertension 02/21/2013 Migraine 02/21/2013 Encounters Date Type Department Care Team Description 04/01/2025 11:00 AM EDT Office Visit [facility] ADULT DENTAL [address] [facility] [place] [address] Sage Arroyo, ROSINA Full coverage crown needed for tooth at risk for fracture (Primary Dx) 03/20/2025 10:30 AM EDT Office Visit [facility] ADULT DENTAL [address] [place] [address] Sage Arroyo, DMD Full coverage crown needed for tooth at risk for fracture (Primary Dx) from Last 3 Months Social History Tobacco [...] Description 07/14/2025 10:15 AM EST Office Visit [facility] ADULT DENTAL [address] [place] [address] Roque Hennessy Health Maintenance Due Date Last [...] 07/03/2024, 12/28/2023, Additional history exists Tobacco Screening 04/01/2026 04/01/2025 Dental X-Ray: Full Mouth 12/28/2026 024, 03/20/2019, [...] PRESENTATION, DETAILED AND EXTENSIVE TREATMENT PLANNING Routine 04/01/2025 11:00 AM EDT Full coverage crown needed for tooth at risk for fracture 13 CROWN - PORCELAIN/CERAMIC Routine 04/01/2025 11:00 AM EDT Full coverage crown needed for tooth at risk for fracture CASE PRESENTATION, DETAILED AND EXTENSIVE TREATMENT PLANNING Routine 03/20/2025 10:30 AM EDT Full coverage crown needed for tooth at risk for fracture 13 CROWN PREP Routine 03/20/2025 10:30 AM EDT Full coverage crown needed for tooth at risk for fracture PROPHYLAXIS - ADULT Routine 01/07/2025 1 0:00 AM EDT Defective dental hinduism Full coverage crown needed for tooth at risk for fracture PERIODIC ORAL EVALUATION - ESTABLISHED PATIENT Routine 01/07/2025 10:00 AM EDT Defective dental hinduism Full coverage crown needed for tooth at risk for fracture INTRAORAL - COMPLETE SERIES OF RADIOGRAPHIC IMAGES Routine 12/28/2023 10:00 AM EDT from Last 3 Months or Most Recently Relevant to Health Maintenance Insurance DENTAL [facility]
--- OUTSIDE RECORDS SUMMARY | 2025-06-11 09:20 | XMS_ITS | Encounter Summary ---
Author Organization [employer] Address [address] [facility] 7[address] [place] [address] Care Team Providers Care Recovery Coordinator Name Role Phone Unavailable Primary Care Provider Unavailabl e Encounter Details Date Type Department Care Team (Latest Contact Info) Description 03/20/2019 Abstract [facility] CONVERSIONS Dental, Provider, DDS Social History Tobacco [...] Description 07/14/2025 10:15 AM EST Office Visit [facility] CHC ADULT DENTAL [address] [place] [address] Roque Hennessy documented as of this encounter Visit Diagnoses Not on filedocumented in this encounter
[2025-06-11 09:24] VITALS: BP 122/68; PULSE 71; O2SAT 96; BMI 19.9
--- NOTE | 2025-06-11 09:24 | A.OFFPC_ITS ---
Vital Signs 06/11/25 09:24 Height 5 ft Weight 102 lb BMI 19.9 BP 122/68 Blood Pressure Location Lt brachial Position Sitting Pulse 71 Pulse Source Pulse Oximeter Pulse Oximetry (%) 96 Oxygen Delivery Method Room Air Intake Visit Reasons: BP Tower Cleaner Required: No Accompanied by: Self / Same As Patient Allergies ciprofloxacin Allergy (Unknown, Verified 06/11/25 09:37) Unknown lovastatin Adverse Reaction (Intermediate, Verified 06/11/25 09:37) upset stomach pravastatin (PRAVASTATIN) Adverse Reaction (Intermediate, Verified 06/11/25 09:37) UPSET STOMACH simvastatin (SIMVASTATIN) Adverse Reaction (Intermediate, Verified 06/11/25 09:37) UPSET STOMACH Medication List - Last Reconciled 06/11/25 by Yari Cuello MD atorvastatin 20 mg (2 x 10 mg) PO DAILY cholecalciferol (vitamin D3) 10 mcg PO DAILY 90 days fluticasone propionate 50 mcg/actuation (Allergy Relief (fluticasone)) 1 spray intranasal DAILY 30 days magnesium glycinate 300 mg (3 x 100 mg) PO BEDTIME 90 days omeprazole 10 mg PO DAILY PRN 90 days triamterene-hydrochlorothiazid 37.5-25 mg 1 tab PO QAM Tobacco use date assessed: 02/06/25 Fall risk assessment: No Falls in past year Last assessed Fall Risk: 06/11/25 Dental Screening Dental Screen Date: 02/06/25 HPI HPI Comments History of Present Illness Details This is a 70-year-old female with essential hypertension, pure hypercholesterolemia, GERD and allergic rhinitis that comes today for follow-up on her conditions. Blood pressure within goal being less than 130/80. Cholesterol well control and she complains of atorvastatin 20 mg causing and abdominal discomfort which she did not experience with the 10 mg. I will decrease it for that matter. GERD stable with PPIs and low acid diet. Allergic rhinitis well control with Flonase. No chest pain or shortness on breath. [facility] Medical History (Updated 02/06/25 @ 08:13 by Yari Cuello MD) Anemia Peripheral arterial disease Malnutrition Mild major depression, single episode Unintentional weight loss Allergic rhinitis GERD (gastroesophageal reflux disease) Pure hypercholesterolemia Essential hypertension Surgical History History of endoscopy History of colonoscopy H/O breast biopsy History of tubal ligation Family History Father No problems noted. Mother Hypertension Arthritis Kidney disease Recent heart attack Sister Diabetes Family/Other Diabetes Sister Diabetes Daughter No problems noted. Son No problems noted. 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 Cognitive needs: No Hearing needs: No Vision needs: No Questionnaire Thrive Questionnaire Date Thrive assessed: 02/06/25 I am a: Patient What is your living situation today?: I have a steady place to live Within the past 12 months, did the food you bought not last and you didn't have the money to get more?: Never true Within the past 12 months, did you worry whether your food would run out before you got money to buy more?: Never true Do you have trouble paying for medicines?: I choose not to answer this question Do you have trouble getting transportation to medical appointments?: I choose not to answer this question Do you have trouble paying your heating and electricity bill?: I choose not to answer this question Do you have trouble taking care of your child, family member or friend?: No Do you have trouble with day-to-day activities such as bathing, preparing meals, shopping, managing finances, etc.?: No Are you currently unemployed and looking for a job?: Yes Are you interested in more education?: No Currently or been in a relationship where the following occur: No concerns reported THRIVE Score: 0 KANDICE-7 AMB Questionnaire KANDICE-7 Date KANDICE - 7 assessed: 02/06/25 Source: Developed by Drs. Ken Baum, Katja Martinez, Jesus Landeros and colleagues, with an educational doug from Patient Feed. Review of Systems Const All systems reviewed & are unremarkable except as noted in HPI and below Card Denies chest pain at rest, Denies chest pain with activity, Denies edema, Denies irregular heart rhythm, Denies claudication, Denies dyspnea, Denies dyspnea on exertion, Denies orthopnea, Denies paroxysmal nocturnal dyspnea and Denies slow heart rate Resp Denies cough, Denies dyspnea and Denies dyspnea on exertion Physical exam (Primary Care) Vital Signs: Last Vital Signs Pulse 71 06/11/25 09:24 BP 122/68 06/11/25 09:24 Pulse Ox 96 06/11/25 09:24 Oxygen Delivery Method Room Air 06/11/25 09:24 BMI result Body Mass Index 19.9 Tobacco/Smoking Status: Tobacco use Status Tobacco use date assessed 02/06/25 06/11/25 09:30 Patient Tobacco Use Status Never used Tobacco 06/11/25 09:30 Tobacco use type Cigarette 06/11/25 09:30 e-Cigarette/Vaping Use Never Used 06/11/25 09:30 Thrive Assessment: Date of Thrive Assessment Date Thrive assessed 02/06/25 06/11/25 09:30 Currently or been in a relationship where the following occur: No concerns reported Resp Effort & Inspection: normal respiratory effort Auscultation: clear to auscultation bilaterally Cardio Jugular venous distension: no JVD Rate: regular rate Rhythm: regular rhythm Heart sounds: S1 normal heart sound present and S2 normal heart sound present Extrem General: Yes full ROM Coding Level of Care Code Est Pt Level 4 (86164) Diagnoses Essential hypertension I10 Pure hypercholesterolemia E78.00 Allergic rhinitis J30.9 Gastroesophageal reflux disease, unspecified whether esophagitis present K21.9 Esophagitis presence: esophagitis presence not specified Time Spent (min) 20 Assessment & Plan Assessment & Plan (1) Essential hypertension: Code(s): I10 - Essential (primary) hypertension Category: Medical (2) Pure hypercholesterolemia: Code(s): E78.00 - Pure hypercholesterolemia, unspecified Category: Medical (3) Allergic rhinitis: Code(s): J30.9 - Allergic rhinitis, unspecified Category: Medical (4) GERD (gastroesophageal reflux disease): Code(s): K21.9 - Gastro-esophageal reflux disease without esophagitis Category: Medical Qualifiers: Esophagitis presence: esophagitis presence not specified Qualified Code(s): K21.9 - Gastro-esophageal reflux disease without esophagitis Plan She will continue all her medications. Atorvastatin will be decreased to 10 mg. She did had the flu vaccine last month at the pharmacy. Labs will be order for January. Keep blood pressure less than 130/80. Orders: Orders Vitamin D 25-OH Total 8 Months E55.9 - Vitamin D deficiency, unspecified Comprehensive [place]. Panel Fast 8 Months I10 - Essential (primary) hypertension Lipid Panel 8 Months E78.5 - Hyperlipidemia, unspecified Medications: New atorvastatin (Lipitor) 10 mg PO BEDTIME 90 tabs 1RF 90 days Refilled fluticasone propionate 50 mcg/actuation (Allergy Relief (fluticasone)) administer into each nostril 1 spray intranasal DAILY 16 grams 1RF 30 days Discontinued magnesium glycinate Discontinued Reason: Patient Completed Course 300 mg (3 x 100 mg) PO BEDTIME 90 days 270 tabs 1RF G47.00 - Insomnia, unspecified atorvastatin Discontinued Reason: Patient Completed Course 20 mg (2 x 10 mg) PO DAILY 180 tabs 0RF
== END 2025-06-11 09:49 | disposition home or self-care (01) ==
LOC: HO.HMCH 09:15
PROVIDERS: PCP Internal Medicine; Visit Provider Internal Medicine
DX: I10 Essential (primary) hypertension (principal); E78.00 Pure hypercholesterolemia, unspecified; J30.9 Allergic rhinitis, unspecified; K21.9 Gastro-esophageal reflux disease without esophagitis

== ENCOUNTER → 2025-06-11 09:14 | Outpatient (BNVA) | payer OTHER, SELFPAY | PROVIDERS: PCP Internal Medicine; Visit Provider Internal Medicine | DX: I10 Essential (primary) hypertension (principal); E78.00 Pure hypercholesterolemia, unspecified; J30.9 Allergic rhinitis, unspecified; K21.9 Gastro-esophageal reflux disease without esophagitis | CPT/HCPCS: 99212 ==

== ENCOUNTER 2025-06-17 12:15 | Outpatient (REF) | payer OTHER, SELFPAY ==
--- OUTSIDE RECORDS SUMMARY | 2024-08-16 03:30 | XMS_ITS ---
Author Organization [facility] Address [address] [place] [address] Care Team Providers Care Air Duct Mechanic Name Role Phone Yari Nielson Primary Care Provider Ken Conner [phone] REASON FOR VISIT screening Encounters Encounter Location Date Provider Diagnosis [facility] Outpatient [address] [place], [place] [id number] 08/16/2024 Ken Roberts Colon cancer scree shellie Z12.11 ; Colon polyps K63.5 ; Diverticulosis of large intestine without perforation or abscess without bleeding K57.30 and Other hemorrhoids K64.8 Assessments Encounter Date Diagnosis (ICD Code) Assessment Notes Treatment Notes Treatment Clinical Notes Section Notes 08/16/2024 Colon cancer screening (ICD-10 - Z12.11) 08/16/2024 Colon polyps (ICD-10 - K63.5) 08/16/2024 Diverticulosis of large intestine without perforation or abscess without bleeding (ICD-10 - K57.30) 08/16/2024 Other hemorrhoids (ICD-10 - K64.8) Plan Of Treatment No Information Progress Notes * SANJEEV SOUSADOB: (70 yo F)Acc No.[id number]:08/16/2024 COLON WITH MAC Patient: MCKENNA HOLLISMEN Provider: Juanita Roberts MD :1955 A ge:69 Y S ex:Female Date:08/16/2024 Address:[address] [place] [address] [address] [id number] Pcp:Yari Cuello Subjective: * Chief Complaints: * S creening Assessment: * Assessment: 1. C olon cancer screening - Z12.11 (Primary) 2 . C olon polyps - K63.5? 3. D iverticulosis of large intestine without perforation or abscess without bleeding - K57.30 4 . O ther hemorrhoids - K64.8 Plan: * Procedure Codes: 4 5385 LESION REMOVAL COLONOSCOPY, Modifiers: PT Billing Information: * Procedure Codes: 88133 LESION REMOVAL COLONOSCOPY. Modifiers: PT * The named appointment provid er may or may not be the originator of this progress note, and it is not deemed complete until electronically signed by the appointment provider. Sign off status: Pending * Provider: Juanita Roberts MD Date: 0 08/16/2024 Generated for Ronny perez/Maegan/Kandace on: 04:13 PM EST
--- NOTE | ~2025-06-17 | MM_ITS ---
EXAMINATION: DXA BONE DENSITY AXIAL HISTORY: Z78.0 - Asymptomatic menopausal state TECHNIQUE: [employer] Dual energy absorptiometry (DEXA) of the lumbar spine, total left hip, and femoral neck was performed. COMPARISON: There are no prior studies for comparison. FINDINGS: The bone mineral density of the lumbar spine is 1.093 g/cm2, corresponding to a T-score of -0.7, and a Z-score of 1.6. This is indicative of normal bone mineral density. The bone mineral density of the left total hip is 0.760 g/cm2, corresponding to a T-score of -2.0, and a Z-score of 0.0. This is indicative of osteopenia. The bone mineral density of the left femoral neck is 0.726 g/cm2, corresponding to a T-score of -2.2, and a Z-score of -0.1. This is indicative of osteopenia. FRACTURE RISK: The FRAX index suggests a risk of major osteoporotic fracture of 6.9%, and of hip fracture 1.7%. MM/XR DEXA axial skeleton IMPRESSION: Based on bone mineral density, and according to World Health Organization (WHO) criteria, the diagnosis is consistent with osteopenia. Statistically, 68% of repeat scans fall within 1 SD (+/- 0.010 g/cm2 for AP spine L1-L4) and 1 SD (+/- 0.012 g/cm2 for femur total) FRAX is a trademark of the [employer] [place] for Metabolic Bone Disease, a World Health Organization (WHO) Collaborating Center. Electronically signed by: Ken Martinez MD 06/17/2025 01:32 PM [facility]
--- OUTSIDE RECORDS SUMMARY | 2025-06-17 16:13 | XMS_ITS | Patient Health Record ---
Author Organization [facility] Address [address] [place] [address] Care Team Providers Care Fingernail Sculptor Name Role Phone Yari Nielson Primary Care Provider Ken Conner Unavailable [phone] Allergies Allergen (clinical drug ingredient) Drug/Non Drug [...] Status Risk Notes Problem Colon cancer screening (570532491) Colon cancer screening (Z12.11) Active confirmed Problem Screening for malignant neoplasm of colon (508700591) Encounter for screening for malignant neoplasm of colon (Z12.11) Active confirmed Problem Pre-procedure evaluation check (873849822) Encounter for other preprocedural examination (Z01.818) Active confirmed Problem Weight loss (798538657) Weight loss (R63.4) Active confirmed Problem Gastroesophageal reflux disease without esophagitis (505972782) Gastroesophageal reflux disease without esophagitis (K21.9) Active confirmed Problem Preprocedural examination (428878736256742) Preprocedural examination (Z01.818) Active confirmed Encounters Encounter Location Date Provider Diagnosis [facility] [place] Outpatient [address] [place] [address] [phone] 08/16/2024 Ken Roberts Colon cancer wilbere shellie [...] Coverage Start Date Coverage End Date [facility] [address] Attn Claims LILLY [place] [id number] SANJEEV SOUSA Self - patient is the insured [facility] [address] [place] [address] [id number] SOUSA, SANJEEV Self - patient is the insured Medical (General) History Medical History History ICD Code Screening colonoscopy 03-19-2009--diverti culosis and internal hemorrhoids HTN GERD--EGD 06/2014--small HH, mild reflux, no esophagitis, no Omalley's Hyperlipidemia Anemia--Hgb 12.3 in 12/2013, MCV 89 and n ormal Iron Denies ND,DM,CVA,Lung disease,renal dise ase Screening colonoscopy in Nov was negative but the prep was somewhat limited Surgical History Surgery Date(Month/Year) Breast biopsy Tubal ligation Cystoscopy 06/26/18
--- OUTSIDE RECORDS SUMMARY | 2025-06-17 16:13 | XMS_ITS | Encounter Summary ---
Author Organization [employer] Address [address] [facility] 7[address] [place] [address] Care Team Providers Care Binding Printer Name Role Phone Unavailable Primary Care Provider Unavailabl e Encounter Details Date Type Department Care Team (Latest Contact Info) Description 12/23/2021 Abstract [facility] CONVERSIONS Dental, Provider, DDS Social History [...] Description 07/14/2025 10:15 AM EST Office Visit [facility] ADULT DENTAL [address] [place] [address] Roque Hennessy documented as of this encounter Visit Diagnoses Not on filedocumented in this encounter
--- OUTSIDE RECORDS SUMMARY | 2025-06-17 16:13 | XMS_ITS | Encounter Summary ---
Author Organization [employer] Address [address] [facility] [address] [place] [address] Care Team Providers Care Physiotherapy Assistant Name Role Phone Unavailable Primary Care Provider Unavailabl e Encounter Details Date Type Department Care Team (Latest Contact Info) Description 09/23/2020 Abstract [facility] CONVERSIONS Dental, Provider, DDS Social History [...] Description 07/14/2025 10:15 AM EST Office Visit [facility] ADULT DENTAL [address] [place] [address] Roque Hennessy documented as of this encounter Visit Diagnoses Not on filedocumented in this encounter
--- OUTSIDE RECORDS SUMMARY | 2025-06-17 16:13 | XMS_ITS | Encounter Summary ---
Author Organization [employer] Address [address] [facility] [address] [place] [address] Care Team Providers Care Hearing Instrument Specialist Name Role Phone Unavailable Primary Care Provider Unavailabl e Encounter Details Date Type Department Care Team (Latest Contact Info) Description 03/20/2019 Abstract [facility] CONVERSIONS Dental, Provider, DDS Social History Tobacco [...] Description 07/14/2025 10:15 AM EST Office Visit [facility] ADULT DENTAL [address] [place] [address] Roque Hennessy documented as of this encounter Visit Diagnoses Not on filedocumented in this encounter
--- OUTSIDE RECORDS SUMMARY | 2025-06-17 16:13 | XMS_ITS | Clinical Summary ---
Author Organization [employer] Address [address] [facility] [address] [place] [address] Care Team Providers Care Spiral Spring Winder Name Role Phone Unavailable Primary Care Provider [...] Description 04/01/2025 11:00 AM EDT Office Visit [facility] ADULT DENTAL [address] [place] [address] Sage Arroyo, ROSINA Full coverage crown needed for tooth at risk for fracture (Primary Dx) 03/20/2025 10:30 AM EDT Office Visit [facility] ADULT DENTAL [address] [place] [address] Sage Arroyo, DMD Full coverage crown needed [...] Description 07/14/2025 10:15 AM EST Office Visit [facility] ADULT DENTAL [address] [place] [address] Roque Hennessy Health Maintenance Due Date Last [...] 01/07/2025 1 0:00 AM EDT Defective dental voodoo Full coverage crown needed for tooth at risk for fracture PERIODIC ORAL EVALUATION - ESTABLISHED PATIENT Routine 01/07/2025 10:00 AM EDT Defective dental voodoo Full coverage crown needed for tooth at risk for fracture INTRAORAL - COMPLETE SERIES OF RADIOGRAPHIC IMAGES Routine 12/28/2023 10:00 AM EDT from Last 3 Months or Most Recently Relevant to Health Maintenance Insurance DENTAL [facility]
== END 2025-06-17 12:16 | disposition home or self-care (01) ==
LOC: HO.MAMMO 12:15
PROVIDERS: PCP Internal Medicine; Visit Provider Internal Medicine
DX: Z12.31 Encounter for screening mammogram for malignant neoplasm of breast (principal); Z78.0 Asymptomatic menopausal state
CPT/HCPCS: 77063; 77067; 77080

== ENCOUNTER → 2025-06-17 13:00 | Outpatient (BNV) | payer OTHER, SELFPAY | PROVIDERS: PCP Internal Medicine; Visit Provider Radiology Diagnostic Radiology | DX: E28.39 Other primary ovarian failure (principal) | CPT/HCPCS: 77080 ==